=== PATIENT | male | born 1935 | race Caucasian/White ===

== ENCOUNTER 2018-02-23 07:19 | Inpatient (IN) | payer MEDICARE, OTHER ==
--- NOTE | 2018-02-23 07:40 | EDM.PDOC ---
ED HPI GENERAL MEDICAL PROBLEM - General Stated Complaint: SOB Time Seen by Provider: 02/23/18 07:19 Source of Information: Reports: Patient, Family History Limitations: Reports: Respiratory Distress - History of Present Illness INITIAL COMMENTS - FREE TEXT/NARRATIVE: 82 y.o.w.m with a h/o COPD came to the ed with prod cough and SOB. Pt was seen in a clinic last week and was given steroids. Pt was a former smoker. No other acute medical issues. BP 127/70 Pulse 77 RR 18 Pulse ox 95% on 2 liters O2 Onset Date: 02/16/18 Onset Time: 09:00 Duration: Day(s):, Week(s):, Getting Worse, Intermittent Location: Reports: Chest Quality: Reports: Other (sob, cough) Improves with: Reports: Rest Worsens with: Reports: Movement Context: Reports: Other (copd, fewer) Associated Symptoms: Reports: Cough, Shortness of Breath - Related Data Allergies Allergy/AdvReac Type Severity Reaction Status Date / Time furosemide [From Lasix] Allergy Cannot Verified 02/23/18 10:45 Remember Home Meds: Home Meds Albuterol [Proventil HFA] 2 puff INH Q4H PRN 12/01/14 [History] Aspirin [Children's Aspirin] 81 mg PO DAILY 12/01/14 [History] Bumetanide [Bumex] 0.5 mg PO MOWEFR 12/01/14 [History] Carvedilol 25 mg PO DAILY 12/01/14 [History] Cholecalciferol (Vitamin D3) [Vitamin D3] 1,000 unit PO DAILY 12/01/14 [History] Doxepin [SINEquan] 25 mg PO BEDTIME 12/01/14 [History] Hydrocortisone [Cortef] 10 mg PO DAILY 12/01/14 [History] Magnesium Oxide [Magnesium] 500 mg PO DAILY 12/01/14 [History] Calcium Carbonate [Calcium] 500 mg PO DAILY 02/23/18 [History] Fluticasone/Salmeterol [Advair 250-50] 1 puff IH BID 02/23/18 [History] Lisinopril 10 mg PO DAILY 02/23/18 [History] Umeclidinium [place] [Incruse Ellipta*] 1 puff IH DAILY 02/23/18 [History] Past Medical History Cardiovascular History: Reports: Hypertension Respiratory History: Reports: COPD, Pneumonia, Recurrent ED ROS GENERAL - Review of Systems Review Of Systems: See Below Constitutional: Reports: No Symptoms HEENT: Reports: No Symptoms Respiratory: Reports: Shortness of Breath, Cough, Sputum Cardiovascular: Reports: No Symptoms Endocrine: Reports: No Symptoms GI/Abdominal: Reports: No Symptoms : Reports: No Symptoms Musculoskeletal: Reports: No Symptoms Skin: Reports: No Symptoms Neurological: Reports: No Symptoms Psychiatric: Reports: No Symptoms Hematologic/Lymphatic: Reports: No Symptoms Immunologic: Reports: No Symptoms ED EXAM, GENERAL - Physical Exam Exam: See Below Exam Limited By: Respiratory Distress General Appearance: Alert, WD/WN, Moderate Distress Eye Exam: Bilateral Eye: Normal Inspection Ears: Normal External Exam, Normal Canal Ear Exam: Bilateral Ear: Auricle Normal Nose: Normal Inspection, Normal Mucosa, No Blood Throat/Mouth: Normal Inspection, Normal Lips, Normal Voice, No Airway Compromise Head: Atraumatic, Normocephalic Neck: Normal Inspection, Supple, Non-Tender, Full Range of Motion Respiratory/Chest: Respiratory Distress, Decreased Breath Sounds (RLL of lung) Cardiovascular: Normal Peripheral Pulses, Regular Rate, Rhythm, No Edema, No Gallop, No JVD, No Murmur, No Rub GI/Abdominal: Normal Bowel Sounds, Soft, Non-Tender, No Organomegaly, No Abnormal Bruit, No Mass (Male) Exam: Deferred Rectal (Males) Exam: Deferred Back Exam: Normal Inspection, Full Range of Motion Extremities: Normal Inspection, Normal Range of Motion, Non-Tender, No Pedal Edema, Normal Capillary Refill Neurological: Alert, Oriented, CN II-XII Intact, Normal Cognition, No Motor/ Sensory Deficits Psychiatric: Normal Affect, Normal Mood Skin Exam: Warm, Dry, Intact, Normal Color, No Rash Lymphatic: No Adenopathy Course - Vital Signs Text/Narrative:: 82 y.o.w.m with a h/o COPD came to the ed with prod cough and SOB. Pt was seen in a clinic last week and was given steroids. Pt was a former smoker. No other acute medical issues. BP 127/70 Pulse 77 RR 18 Pulse ox 95% on 2 liters O2 PE: 82 y.o.w.m with COPD came to the ed with SOB and prod. cough Imaging: CXR RLL and RML infiltrate/pneumonia as per RAD Labs: WBC 13.5 GFR 44 BUN 44 Cr 1.5 BUN/CR ratio elevated BCx results are pending Impression: RML and RLL pneumonia of right lung, CAPD Tx: Levofloxacine, NS, Duoneb Reexam: improved 10.58 am (texted): Consultation: Dr. Giron, Hospitlist: Admit to inpatient Plan: Admit to inpatient Last Recorded V/S: Last Vital Signs Temp 36.6 C 02/25/18 16:00 Pulse 72 02/25/18 16:00 Resp 18 02/25/18 16:00 BP 110/65 02/25/18 16:00 Pulse Ox 92 L 02/25/18 16:00 - Orders/Labs/Meds Orders: Medication Orders Albuterol/Ipratropium (Duoneb 3.0-0.5 Mg/3 Ml) 3 ml INH Q4H PRN PRN Reason: Shortness Of Breath/wheezing Last Admin: 02/25/18 13:34 Dose: 3 ml Admin: 02/25/18 07:35 Dose: 3 ml Admin: 02/24/18 20:47 Dose: 3 ml Admin: 02/24/18 12:50 Dose: 3 ml Aspirin (Aspirin) 81 mg PO DAILY [facility] Last Admin: 02/25/18 09:01 Dose: 81 mg Admin: 02/24/18 08:28 Dose: 81 mg Bumetanide (Bumex) 1 mg PO DAILY [facility] Last Admin: 02/25/18 09:01 Dose: 1 mg Admin: 02/24/18 10:21 Dose: 1 mg Admin: 02/23/18 20:11 Dose: 1 mg Carvedilol (Coreg) 25 mg PO DAILY [facility] Last Admin: 02/25/18 09:01 Dose: 25 mg Admin: 02/24/18 08:28 Dose: 25 mg Doxepin HCl (Sinequan) 25 mg PO BEDTIME [facility] Last Admin: 02/24/18 20:44 Dose: 25 mg Admin: 02/23/18 21:57 Dose: 25 mg Hydrocortisone (Cortef) 10 mg PO DAILY [facility] Last Admin: 02/25/18 09:01 Dose: 10 mg Admin: 02/24/18 10:22 Dose: 10 mg Levofloxacin/Dextrose 250 mg/ (Premix) 50 mls @ 50 mls/hr IV Q24H [facility] Last Admin: 02/25/18 13:19 Dose: 50 mls/hr Infusion: 02/24/18 13:40 Dose: 50 mls/hr Admin: 02/24/18 12:40 Dose: 50 mls/hr Magnesium Oxide (Magnesium Oxide) 400 mg PO DAILY [facility] Last Admin: 02/25/18 09:02 Dose: 400 mg Admin: 02/24/18 10:22 Dose: 400 mg Mometasone Furoate/Formoterol Fumar (Dulera 200-5 Mcg) 2 puff IH BID [facility] Last Admin: 02/25/18 09:02 Dose: 2 puff Admin: 02/24/18 20:44 Dose: 2 puff Admin: 02/24/18 08:29 Dose: 2 puff Prednisone (Prednisone) 20 mg PO BID [facility] Last Admin: 02/25/18 09:02 Dose: 20 mg Admin: 02/24/18 20:44 Dose: 20 mg Admin: 02/24/18 08:28 Dose: 20 mg Admin: 02/24/18 00:34 Dose: 20 mg Admin: 02/23/18 20:10 Dose: 20 mg Sodium Chloride (Saline Flush) 10 ml FLUSH ASDIRECTED PRN PRN Reason: Keep Vein Open Last Admin: 02/24/18 20:44 Dose: 10 ml Admin: 02/23/18 14:36 Dose: 10 ml Admin: 02/23/18 13:38 Dose: 10 ml Tiotropium [place] (Spiriva Handihaler) 18 mcg INH DAILY [facility] Last Admin: 02/25/18 09:02 Dose: 1 inhalation Admin: 02/24/18 10:22 Dose: 1 inhalation Labs: Laboratory Tests 02/23/18 02/23/18 02/23/18 Range/Units 09:00 09:00 09:00 WBC 13.9 H (4.5-12.0) X10-3/uL RBC 4.64 (4.30-5.75) x10(6)uL Hgb 14.9 (11.5-15.5) g/dL Hct 43.6 (30.0-51.3) % MCV 93.9 (80-96) fL MCH 32.0 (27.7-33.6) pg MCHC 34.1 (32.2-35.4) g/dL RDW 13.3 (11.5-15.5) % Plt Count 149 (125-369) X10(3)uL MPV 8.3 (7.4-10.4) fL Add Manual Diff Yes Neutrophils % (Manual) 89 H (46-82) % Lymphocytes % (Manual) 10 L (13-37) % Eosinophils % (Manual) 1 (0-5) % Sodium 141 (135-145) mmol/L Potassium 4.0 (3.5-5.3) mmol/L Chloride 103 (100-110) mmol/L Carbon Dioxide 31 (21-32) mmol/L BUN 42 H (7-18) mg/dL Creatinine 1.5 H (0.70-1.30) mg/dL Est Cr Clr Drug Dosing TNP Estimated GFR (MDRD) 45 L (>60) BUN/Creatinine Ratio 28.0 H (9-20) Glucose 79 L (80-116) mg/dL Lactic Acid 1.5 (0.4-2.2) mmol/L Calcium 8.7 (8.6-10.2) mg/dL Meds: Medications Generic Name Dose Route Start Last Admin Trade Name Freq PRN Reason Stop Dose Admin Albuterol/Ipratropium 3 ml 02/24/18 10:00 02/25/18 13:34 Duoneb 3.0-0.5 Mg/3 Ml INH 3 ml Q4H PRN Administration Shortness Of Breath/wheezing Aspirin 81 mg 02/24/18 09:00 02/25/18 09:01 Aspirin PO 81 mg DAILY SY Administration Bumetanide 1 mg 02/23/18 19:00 02/25/18 09:01 Bumex PO 1 mg DAILY SY Administration Carvedilol 25 mg 02/24/18 09:00 02/25/18 09:01 Coreg PO 25 mg DAILY SY Administration Doxepin HCl 25 mg 02/23/18 21:00 02/24/18 20:44 Sinequan PO 25 mg BEDTIME SY Administration Hydrocortisone 10 mg 02/24/18 09:00 02/25/18 09:01 Cortef PO 10 mg DAILY SY Administration Levofloxacin/Dextrose 250 mg/ 50 mls @ 50 mls/hr 02/24/18 13:00 02/25/18 13: 19 Premix IV 50 mls/hr Q24H SY Administration Magnesium Oxide 400 mg 02/24/18 09:00 02/25/18 09:02 Magnesium Oxide PO 400 mg DAILY SY Administration Mometasone Furoate/Formoterol Fumar 2 puff 02/24/18 07:55 02/25/18 09:02 Dulera 200-5 Mcg IH 2 puff BID SY Administration Prednisone 20 mg 02/23/18 17:45 02/25/18 09:02 Prednisone PO 20 mg BID SY Administration Sodium Chloride 10 ml 02/23/18 11:41 02/24/18 20:44 Saline Flush FLUSH 10 ml ASDIRECTED PRN Administration Keep Vein Open Tiotropium [place] 18 mcg 02/24/18 09:00 02/25/18 09:02 Spiriva Handihaler INH 1 inhalation DAILY SY Administration Discontinued Medications Generic Name Dose Route Start Last Admin Trade Name Freq PRN Reason Stop Dose Admin Albuterol/Ipratropium 3 ml 02/23/18 07:41 02/23/18 08:20 Duoneb 3.0-0.5 Mg/3 Ml NEB 02/23/18 07:42 3 ml ONETIME ONE Administration Albuterol/Ipratropium 3 ml 02/23/18 11:41 Duoneb 3.0-0.5 Mg/3 Ml INH ONETIME PRN Shortness Of Breath/wheezing Levofloxacin/Dextrose 500 mg/ 100 mls @ 100 mls/hr 02/23/18 11:06 02/23/18 13 :33 Premix IV 02/23/18 12:05 100 mls/hr ONETIME ONE Administration Levofloxacin/Dextrose 500 mg/ 100 mls @ 100 mls/hr 02/24/18 11:00 Premix IV Q24H SY Sodium Chloride 1,000 mls @ 100 mls/hr 02/24/18 08:15 02/24/18 08:22 Normal Saline IV 02/24/18 19:00 100 mls/hr ASDIRECTED SY Administration Iopamidol 75 ml 02/23/18 18:57 02/23/18 19:21 Isovue-370 (76%) IV 02/23/18 18:58 75 ml ASDIRECTED ONE Administration Mometasone Furoate/Formoterol Fumar 2 puff 02/23/18 21:00 02/23/18 21:57 Dulera 200-5 Mcg IH 2 puff BID SY Administration Prednisone Confirm 02/23/18 20:09 02/23/18 20:16 Prednisone Administered 02/23/18 20:10 Not Given Dose 20 mg .ROUTE .STK-MED ONE Departure - Departure Time of Disposition: 16:00 Disposition: Admitted As Inpatient 66 Condition: Fair Clinical Impression: Pneumonia - Discharge Information
[2018-02-23] MEDS ORDERED: Albuterol/Ipratropium 3.0-0.5 MG/3 ML Neb Soln NEB ONE (07:41)
[2018-02-23] MEDS ORDERED: Levofloxacin/Dextrose 5%-Water 500 MG in Premix Bag 1 BAG IV ONE (11:06)
--- NOTE | 2018-02-23 11:06 | CR ---
INDICATION: Short of breath, cough. CHEST: Two PA views and a lateral view of the chest were obtained 02/23/2018 and compared with 02/15/2018 and 12/04/2014. Heavy markings are noted in the upper lung blake and the right mid lung field, as well as at the lower lung field on the right, and appear increased in the lower lung field on the right, suggesting patchy pneumonia superimposed on fibrosis. No gross consolidating pneumonia or definite effusion was seen. Findings compatible with COPD are again noted. The heart is normal in size and shape. The aorta is tortuous with calcification in the arch. Mild degenerative changes are noted in the upper middle thoracic spine. IMPRESSION: 1. Patchy pneumonia in the right lower lobe and middle lobe areas superimposed on fibrosis. 2. COPD. 3. ASD aorta. MTDD
[2018-02-23] MEDS ORDERED: Albuterol/Ipratropium 3.0-0.5 MG/3 ML Neb Soln INH PRN (11:41)
[2018-02-23] MEDS: Sodium Chloride 0.9% 10 ML Syringe FLUSH PRN ×2 (13:38→14:36)
--- NOTE | 2018-02-23 17:51 | PCM.HP ---
H&P History of Present Illness - General Date of Service: 02/23/18 Admit Problem/Dx: Admission Diagnosis/Problem Admission Diagnosis/Problem Pneumonia Source of Information: Patient, Old Records - History of Present Illness Initial Comments - Free Text/Narative: Zac is an 82-year-old male with cough shortness of breath lasting weeks. I sodium the clinic a week ago and treated for COPD exacerbation with prednisone and see CPAP his symptoms worsened. He c/o coughing yellow sputum and nebulized therapy at home isnt helping. He has known COPD, as well as a history of CHF both of which have been well-controlled. He also has a history of lung cancer- squamous cell -in remission. in 2008,he had respiratory failure and ended up prolonged mechanical ventilation.Also has [place]'s disease & is currently on hydrocortisone for replacement. Today,Zac complains of no headache, no chest pain neither does he have any fever or chills ,nausea or vomiting. - Related Data Allergies/Adverse Reactions: Allergies Allergy/AdvReac Type Severity Reaction Status Date / Time furosemide [From Lasix] Allergy Cannot Verified 02/23/18 10:45 Remember Home Medications: Home Meds Albuterol [Proventil HFA] 2 puff INH Q4H PRN 12/01/14 [History] Aspirin [Children's Aspirin] 81 mg PO DAILY 12/01/14 [History] Bumetanide [Bumex] 0.5 mg PO MOWEFR 12/01/14 [History] Carvedilol 25 mg PO DAILY 12/01/14 [History] Cholecalciferol (Vitamin D3) [Vitamin D3] 1,000 unit PO DAILY 12/01/14 [History] Doxepin [SINEquan] 25 mg PO BEDTIME 12/01/14 [History] Hydrocortisone [Cortef] 10 mg PO DAILY 12/01/14 [History] Magnesium Oxide [Magnesium] 500 mg PO DAILY 12/01/14 [History] Calcium Carbonate [Calcium] 500 mg PO DAILY 02/23/18 [History] Fluticasone/Salmeterol [Advair 250-50] 1 puff IH BID 02/23/18 [History] Lisinopril 10 mg PO DAILY 02/23/18 [History] Umeclidinium [place] [Incruse Ellipta*] 1 puff IH DAILY 02/23/18 [History] Past Medical History Cardiovascular History: Reports: Hypertension Respiratory History: Reports: COPD, Pneumonia, Recurrent Other Respiratory History: hx of lung ca with "tumors removed twice" one from each lung Endocrine/Metabolic History: Reports: [place]'s Disease Oncologic (Cancer) History: Reports: Lung, Lymphoma, Other (See Below) Other Oncologic History: "skin cancer" Dermatologic History: Reports: Melanoma, Other (See Below) Other Dermatologic History: "skin cancer with leisons remove frequently" Social & Family History - Tobacco Use Smoking Status *Q: Former Smoker Used Tobacco, but Quit: Yes Month/Year Tobacco Last Used: 1979 - Caffeine Use Caffeine Use: Reports: Coffee - Recreational Drug Use Recreational Drug Use: No H&P Review of Systems - Review of Systems: Review Of Systems: ROS reveals no pertinent complaints other than HPI. Exam - Exam Exam: See Below - Vital Signs Vital Signs: Last Vital Signs Temp 99.3 F 02/23/18 11:42 Pulse 83 02/23/18 11:42 Resp 18 02/23/18 11:42 BP 116/44 L 02/23/18 11:42 Pulse Ox 89 L 02/23/18 11:43 Weight: 77.927 kg - Exam Quality Assessment: Supplemental Oxygen General: Alert, Oriented, 4 HEENT: PERRLA, Hearing Intact, Mucosa Moist & [place], Nares Patent, Normal Nasal Septum, Posterior Pharynx Clear, Conjunctiva Clear, EOMI, EACs Clear, TMs Clear Neck: Supple, Trachea Midline, 2 Lungs: Normal Respiratory Effort, Crackles, Rales Cardiovascular: Regular Rate, Regular Rhythm GI/Abdominal Exam: Normal Bowel Sounds, Soft, Non-Tender, No Organomegaly, No Distention, No Abnormal Bruit, No Mass, Pelvis Stable (Male) Exam: Deferred Rectal (Males) Exam: Deferred Back Exam: Normal Inspection, Full Range of Motion, NT Extremities: Normal Inspection, Normal Range of Motion, Non-Tender, No Pedal Edema, Normal Capillary Refill Skin: Warm, Dry, Intact Neurological: Cranial Nerves Intact, Reflexes Equal Bilateral Neuro Extensive - Mental Status: Alert, Oriented x3, Normal Mood/Affect, Normal Cognition Neuro Extensive - Motor, Sensory, Reflexes: CN II-XII Intact, Normal Gait, Normal Reflexes Psychiatric: Alert, Normal Affect, Normal Mood - Patient Data Lab Results Last 24 hrs: Laboratory Results - last 24 hr 02/23/18 02/23/18 02/23/18 Range/Units 09:00 09:00 09:00 WBC 13.9 H (4.5-12.0) X10-3/uL RBC 4.64 (4.30-5.75) x10(6)uL Hgb 14.9 (11.5-15.5) g/dL Hct 43.6 (30.0-51.3) % MCV 93.9 (80-96) fL MCH 32.0 (27.7-33.6) pg MCHC 34.1 (32.2-35.4) g/dL RDW 13.3 (11.5-15.5) % Plt Count 149 (125-369) X10(3)uL MPV 8.3 (7.4-10.4) fL Add Manual Diff Yes Neutrophils % (Manual) 89 H (46-82) % Lymphocytes % (Manual) 10 L (13-37) % Eosinophils % (Manual) 1 (0-5) % Sodium 141 (135-145) mmol/L Potassium 4.0 (3.5-5.3) mmol/L Chloride 103 (100-110) mmol/L Carbon Dioxide 31 (21-32) mmol/L BUN 42 H (7-18) mg/dL Creatinine 1.5 H (0.70-1.30) mg/dL Est Cr Clr Drug Dosing TNP Estimated GFR (MDRD) 45 L (>60) BUN/Creatinine Ratio 28.0 H (9-20) Glucose 79 L (80-116) mg/dL Lactic Acid 1.5 (0.4-2.2) mmol/L Calcium 8.7 (8.6-10.2) mg/dL Result Diagrams: 02/23/18 09:00 02/23/18 09:00 - Problem List (1) CAP (community acquired pneumonia) SNOMED Code(s): 938264931 ICD Code: J18.9 - PNEUMONIA, UNSPECIFIED ORGANISM Status: Acute Current Visit: Yes Qualifiers: Laterality: right (2) COPD (chronic obstructive pulmonary disease) SNOMED Code(s): 92427436 ICD Code: J44.9 - CHRONIC OBSTRUCTIVE PULMONARY DISEASE, UNSPECIFIED Status : Acute Current Visit: Yes Qualifiers: COPD type: COPD with acute exacerbation Qualified Code(s): J44.1 - Chronic obstructive pulmonary disease with (acute) exacerbation (3) H/O: lung cancer SNOMED Code(s): 065649918, 844289852 ICD Code: Z85.118 - PERSONAL HISTORY OF MALIGNANT NEOPLASM OF BRONCHUS AND LUNG Status: Acute Current Visit: Yes (4) H/O CHF SNOMED Code(s): 400583528 ICD Code: Z86.79 - PERSONAL HISTORY OF OTHER DISEASES OF THE CIRCULATORY SYSTEM Status: Chronic Current Visit: Yes (5) Addisons disease SNOMED Code(s): 086904083 ICD Code: E27.1 - PRIMARY ADRENOCORTICAL INSUFFICIENCY Status: Chronic Current Visit: Yes (6) Lymphoma SNOMED Code(s): 324133165 ICD Code: C85.90 - NON-HODGKIN LYMPHOMA, UNSPECIFIED, UNSPECIFIED SITE Status: Acute Current Visit: Yes Qualifiers: Non-follicular lymphoma type: mantle cell (7) HTN (hypertension) SNOMED Code(s): 83601849 ICD Code: I10 - ESSENTIAL (PRIMARY) HYPERTENSION Status: Chronic Current Visit: Yes Qualifiers: Hypertension type: essential hypertension Qualified Code(s): I10 - Essential (primary) hypertension (8) CKD (chronic kidney disease) SNOMED Code(s): 388131133 ICD Code: N18.9 - CHRONIC KIDNEY DISEASE, UNSPECIFIED Status: Chronic Current Visit: Yes Qualifiers: Chronic kidney disease stage: stage 3 (moderate) Qualified Code(s): N18.3 - Chronic kidney disease, stage 3 (moderate) Problem List Initiated/Reviewed/Updated: Yes Orders Last 24hrs: Active Orders 24 hr Category Date Time Status Patient Status [ADT] Routine ADT 02/23/18 11:42 Active Oxygen Therapy [RC] PRN Care 02/23/18 11:42 Active Pulse Oximetry [RC] PRN Care 02/23/18 11:43 Active RT Aerosol Therapy [RC] ASDIRECTED Care 02/23/18 11:44 Active Up With Assistance [RC] ASDIRECTED Care 02/23/18 11:41 Active Vital Signs [RC] Q4H Care 02/23/18 11:42 Active Regular Diet [DIET] Diet 02/23/18 Breakfast Active Chest w Cont [CT] Routine Exams 02/23/18 17:40 Ordered BASIC METABOLIC PANEL,BMP [CHEM] AM Lab 02/24/18 05:11 Ordered CBC WITH AUTO DIFF [HEME] AM Lab 02/24/18 05:11 Ordered CULTURE BLOOD [BC] Urgent Lab 02/23/18 11:00 Received CULTURE BLOOD [BC] Urgent Lab 02/23/18 11:08 Received PRO B-TYPE NATRIUR PEPT,BNPPRO [CHEM] DAILY Lab 02/24/18 05:11 Ordered PRO B-TYPE NATRIUR PEPT,BNPPRO [CHEM] DAILY Lab 02/25/18 05:11 Ordered PRO B-TYPE NATRIUR PEPT,BNPPRO [CHEM] DAILY Lab 02/26/18 05:11 Ordered Albuterol/Ipratropium [DuoNeb 3.0-0.5 MG/3 ML] Med 02/23/18 11:41 Active 3 ml INH ONETIME PRN Aspirin Med 02/24/18 09:00 Ordered 81 mg PO DAILY Carvedilol [Coreg] Med 02/24/18 09:00 Ordered 25 mg PO DAILY Doxepin [SINEquan] Med 02/23/18 21:00 Ordered 25 mg PO BEDTIME Fluticasone/Salmeterol [Advair 250-50] Med 02/23/18 21:00 Ordered 1 puff IH BID Hydrocortisone [Cortef] Med 02/24/18 09:00 Ordered 10 mg PO DAILY Levofloxacin/Dextrose 5%-Water [Levaquin in D5W 500 MG/ Med 02/24/18 11:00 Ordered 100 ML] 500 mg Premix Bag 1 bag IV Q24H Magnesium Oxide [Magnesium] Med 02/24/18 09:00 Ordered 500 mg PO DAILY Sodium Chloride 0.9% [Saline Flush] Med 02/23/18 11:41 Active 10 ml FLUSH ASDIRECTED PRN Umeclidinium [place] [Incruse Ellipta*] Med 02/24/18 09:00 Ordered 1 puff IH DAILY predniSONE Med 02/23/18 17:45 Ordered 20 mg PO BID Blood Culture x2 Reflex Set [OM.PC] Urgent Oth 02/23/18 10:37 Ordered Peripheral IV Insertion Adult [OM.PC] Routine Oth 02/23/18 11:41 Ordered Resuscitation Status Routine Resus Stat 02/23/18 11:41 Ordered Medication Orders Albuterol/Ipratropium (Duoneb 3.0-0.5 Mg/3 Ml) 3 ml INH ONETIME PRN PRN Reason: Shortness Of Breath/wheezing Aspirin (Aspirin) 81 mg PO DAILY SY Carvedilol (Coreg) 25 mg PO DAILY SY Doxepin HCl (Sinequan) 25 mg PO BEDTIME SY Levofloxacin/Dextrose 500 mg/ (Premix) 100 mls @ 100 mls/hr IV Q24H SY Non-Formulary Medication (Fluticasone/Salmeterol [Advair 250-50]) 1 puff IH BID SY Non-Formulary Medication (Hydrocortisone [Cortef]) 10 mg PO DAILY SY Non-Formulary Medication (Magnesium Oxide [Magnesium]) 500 mg PO DAILY SY Non-Formulary Medication (Umeclidinium [place] [Incruse Ellipta*]) 1 puff IH DAILY SY Prednisone (Prednisone) 20 mg PO BID SY Sodium Chloride (Saline Flush) 10 ml FLUSH ASDIRECTED PRN PRN Reason: Keep Vein Open Last Admin: 02/23/18 14:36 Dose: 10 ml Admin: 02/23/18 13:38 Dose: 10 ml Assessment/Plan Comment:: Zac has pneumonia,clinically and radiographically. However because of his previous bilateral squamous cell of the lung, I've elected to obtain a CT of the chest. We'll admit him for IV Levaquin, and due to COPD exacerbation I'll also add Solu-Medrol and supplement his O2 with nasal canula oxygen. Of ordered a BNP, and a repeat basic profile in the morning. But I will increase the dose of Bumex 1 mg a day. I've held all his vitamins at home but to continue with SVNs. I've also discontinued the lisinopril because of his low blood pressure. I anticipate a 1-2 day hospital stay.
[2018-02-23] MEDS ORDERED: Iopamidol 755 Mg/ML 75 ML Bottle IV ONE (18:57)
[2018-02-23] MEDS ORDERED: predniSONE 20 MG Tab ONE (20:09)
[2018-02-23] MEDS: predniSONE 20 MG Tab PO SCH (20:10)
[2018-02-23] MEDS: Bumetanide 2 MG Tab PO SCH (20:11)
[2018-02-23] MEDS ORDERED: Formoterol/Mometasone 200-5 MCG 8.8 GM Inhaler IH SCH (21:00)
[2018-02-23] MEDS: Doxepin 25 MG Cap PO SCH (21:57)
[2018-02-24] MEDS: predniSONE 20 MG Tab PO SCH ×3 (00:34→20:44)
[2018-02-24] MEDS ORDERED: Sodium Chloride 0.9% 1,000 ML IV SCH (08:15)
--- NOTE | 2018-02-24 08:21 | PCM.PN ---
- General Info Date of Service: 02/24/18 Admission Dx/Problem (Free Text): Admission Diagnosis/Problem Admission Diagnosis/Problem Pneumonia Subjective Update: Zac slept better, complaints of less cough, still has some wheezing but no fever chills. He denies any chest pain - Review of Systems Cardiovascular: Reports: No Symptoms Gastrointestinal: Reports: No Symptoms Genitourinary: Reports: No Symptoms - Patient Data Vitals - Most Recent: Last Vital Signs Temp 97.6 F 02/24/18 07:42 Pulse 71 02/24/18 07:42 Resp 20 02/24/18 07:42 BP 103/56 L 02/24/18 07:42 Pulse Ox 89 L 02/24/18 07:42 Weight - Most Recent: 77.927 kg I&O - Last 24 Hours: Intake & Output 02/23/18 02/24/18 02/24/18 22:59 06:59 14:59 Intake Total 100 Balance 100 Lab Results Last 24 Hours: Laboratory Results - last 24 hr 02/23/18 02/23/18 02/23/18 Range/Units 09:00 09:00 09:00 WBC 13.9 H (4.5-12.0) X10-3/uL RBC 4.64 (4.30-5.75) x10(6)uL Hgb 14.9 (11.5-15.5) g/dL Hct 43.6 (30.0-51.3) % MCV 93.9 (80-96) fL MCH 32.0 (27.7-33.6) pg MCHC 34.1 (32.2-35.4) g/dL RDW 13.3 (11.5-15.5) % Plt Count 149 (125-369) X10(3)uL MPV 8.3 (7.4-10.4) fL Add Manual Diff Yes Neutrophils % (Manual) 89 H (46-82) % Lymphocytes % (Manual) 10 L (13-37) % Monocytes % (Manual) (4-12) % Eosinophils % (Manual) 1 (0-5) % Sodium 141 (135-145) mmol/L Potassium 4.0 (3.5-5.3) mmol/L Chloride 103 (100-110) mmol/L Carbon Dioxide 31 (21-32) mmol/L BUN 42 H (7-18) mg/dL Creatinine 1.5 H (0.70-1.30) mg/dL Est Cr Clr Drug Dosing TNP Estimated GFR (MDRD) 45 L (>60) BUN/Creatinine Ratio 28.0 H (9-20) Glucose 79 L (80-116) mg/dL Lactic Acid 1.5 (0.4-2.2) mmol/L Calcium 8.7 (8.6-10.2) mg/dL NT-Pro-B Natriuret Pep (<=450) pg/mL 02/24/18 02/24/18 02/24/18 Range/Units 06:15 06:15 06:15 WBC 22.5 H (4.5-12.0) X10-3/uL RBC 4.45 (4.30-5.75) x10(6)uL Hgb 13.9 (11.5-15.5) g/dL Hct 41.6 (30.0-51.3) % MCV 93.5 (80-96) fL MCH 31.2 (27.7-33.6) pg MCHC 33.4 (32.2-35.4) g/dL RDW 13.2 (11.5-15.5) % Plt Count 155 (125-369) X10(3)uL MPV 8.9 (7.4-10.4) fL Add Manual Diff Yes Neutrophils % (Manual) 93 H (46-82) % Lymphocytes % (Manual) 4 L (13-37) % Monocytes % (Manual) 3 L (4-12) % Eosinophils % (Manual) (0-5) % Sodium 139 (135-145) mmol/L Potassium 4.5 (3.5-5.3) mmol/L Chloride 101 (100-110) mmol/L Carbon Dioxide 28 (21-32) mmol/L BUN 43 H (7-18) mg/dL Creatinine 2.0 H* (0.70-1.30) mg/dL Est Cr Clr Drug Dosing 28.48 Estimated GFR (MDRD) 32 L (>60) BUN/Creatinine Ratio 21.5 H (9-20) Glucose 100 (80-116) mg/dL Lactic Acid (0.4-2.2) mmol/L Calcium 8.8 (8.6-10.2) mg/dL NT-Pro-B Natriuret Pep 4409 H* (<=450) pg/mL Med Orders - Current: Current Medications Albuterol/Ipratropium (Duoneb 3.0-0.5 Mg/3 Ml) 3 ml INH ONETIME PRN PRN Reason: Shortness Of Breath/wheezing Aspirin (Aspirin) 81 mg PO DAILY [facility] Bumetanide (Bumex) 1 mg PO DAILY [facility] Last Admin: 02/23/18 20:11 Dose: 1 mg Carvedilol (Coreg) 25 mg PO DAILY SY Doxepin HCl (Sinequan) 25 mg PO BEDTIME SY Last Admin: 02/23/18 21:57 Dose: 25 mg Hydrocortisone (Cortef) 10 mg PO DAILY [facility] Levofloxacin/Dextrose 500 mg/ (Premix) 100 mls @ 100 mls/hr IV Q24H SY Sodium Chloride (Normal Saline) 1,000 mls @ 100 mls/hr IV ASDIRECTED SY Stop: 02/24/18 19:00 Magnesium Oxide (Magnesium Oxide) 400 mg PO DAILY [facility] Mometasone Furoate/Formoterol Fumar (Dulera 200-5 Mcg) 2 puff IH BID [facility] Prednisone (Prednisone) 20 mg PO BID [facility] Last Admin: 02/24/18 00:34 Dose: 20 mg Sodium Chloride (Saline Flush) 10 ml FLUSH ASDIRECTED PRN PRN Reason: Keep Vein Open Last Admin: 02/23/18 14:36 Dose: 10 ml Tiotropium [place] (Spiriva Handihaler) 18 mcg INH DAILY [facility] Discontinued Medications Albuterol/Ipratropium (Duoneb 3.0-0.5 Mg/3 Ml) 3 ml NEB ONETIME ONE Stop: 02/23/18 07:42 Last Admin: 02/23/18 08:20 Dose: 3 ml Levofloxacin/Dextrose 500 mg/ (Premix) 100 mls @ 100 mls/hr IV ONETIME ONE Stop: 02/23/18 12:05 Last Admin: 02/23/18 13:33 Dose: 100 mls/hr Iopamidol (Isovue-370 (76%)) 75 ml IV ASDIRECTED ONE Stop: 02/23/18 18:58 Last Admin: 02/23/18 19:21 Dose: 75 ml Mometasone Furoate/Formoterol Fumar (Dulera 200-5 Mcg) 2 puff IH BID SY Last Admin: 02/23/18 21:57 Dose: 2 puff Prednisone (Prednisone) Confirm Administered Dose 20 mg .ROUTE .STK-MED ONE Stop: 02/23/18 20:10 Last Admin: 02/23/18 20:16 Dose: Not Given - Exam Quality Assessment: Supplemental Oxygen General: Alert, Oriented Lungs: Decreased Breath Sounds, Rhonchi Cardiovascular: Regular Rate Extremities: Normal Inspection, Normal Range of Motion, Non-Tender, No Pedal Edema, Normal Capillary Refill Psy/Mental Status: Alert - Problem List & Annotations (1) CAP (community acquired pneumonia) SNOMED Code(s): 026271434 Code(s): J18.9 - PNEUMONIA, UNSPECIFIED ORGANISM Status: Acute Current Visit: Yes Qualifiers: Laterality: right (2) COPD (chronic obstructive pulmonary disease) SNOMED Code(s): 10196043 Code(s): J44.9 - CHRONIC OBSTRUCTIVE PULMONARY DISEASE, UNSPECIFIED Status : Acute Current Visit: Yes Qualifiers: COPD type: COPD with acute exacerbation Qualified Code(s): J44.1 - Chronic obstructive pulmonary disease with (acute) exacerbation (3) H/O: lung cancer SNOMED Code(s): 443918703, 298996965 Code(s): Z85.118 - PERSONAL HISTORY OF MALIGNANT NEOPLASM OF BRONCHUS AND LUNG Status: Acute Current Visit: Yes (4) H/O CHF SNOMED Code(s): 212499003 Code(s): Z86.79 - PERSONAL HISTORY OF OTHER DISEASES OF THE CIRCULATORY SYSTEM Status: Chronic Current Visit: Yes (5) Addisons disease SNOMED Code(s): 047857305 Code(s): E27.1 - PRIMARY ADRENOCORTICAL INSUFFICIENCY Status: Chronic Current Visit: Yes (6) Lymphoma SNOMED Code(s): 820629625 Code(s): C85.90 - NON-HODGKIN LYMPHOMA, UNSPECIFIED, UNSPECIFIED SITE Status: Acute Current Visit: Yes Qualifiers: Non-follicular lymphoma type: mantle cell (7) HTN (hypertension) SNOMED Code(s): 28315750 Code(s): I10 - ESSENTIAL (PRIMARY) HYPERTENSION Status: Chronic Current Visit: Yes Qualifiers: Hypertension type: essential hypertension Qualified Code(s): I10 - Essential (primary) hypertension (8) CKD (chronic kidney disease) SNOMED Code(s): 081095509 Code(s): N18.9 - CHRONIC KIDNEY DISEASE, UNSPECIFIED Status: Chronic Current Visit: Yes Qualifiers: Chronic kidney disease stage: stage 3 (moderate) Qualified Code(s): N18.3 - Chronic kidney disease, stage 3 (moderate) - Problem List Review Problem List Initiated/Reviewed/Updated: Yes - My Orders Last 24 Hours: My Active Orders 02/23/18 17:40 Chest w Cont [CT] Routine 02/23/18 17:45 predniSONE 20 mg PO BID 02/23/18 19:00 Bumetanide [Bumex] 1 mg PO DAILY 02/23/18 21:00 Doxepin [SINEquan] 25 mg PO BEDTIME 02/24/18 07:55 Mometasone/Formoterol [Dulera 200-5 MCG] 2 puff IH BID 02/24/18 08:15 Sodium Chloride 0.9% @ 100 MLS/HR(1,000ml) Sodium Chloride 0.9% [Normal Saline] 1,000 ml IV ASDIRECTED 02/24/18 09:00 Aspirin 81 mg PO DAILY Carvedilol [Coreg] 25 mg PO DAILY Hydrocortisone [Cortef] 10 mg PO DAILY Magnesium Oxide 400 mg PO DAILY Umeclidinium [place] [Incruse Ellipta*] 1 puff IH DAILY 02/24/18 11:00 Levofloxacin/Dextrose 5%-Water [Levaquin in D5W 500 MG/100 ML] 500 mg Premix Bag 1 bag IV Q24H 02/25/18 05:11 CBC WITH AUTO DIFF [HEME] AM COMPREHENSIVE METABOLIC PN,CMP [CHEM] AM PRO B-TYPE NATRIUR PEPT,BNPPRO [CHEM] DAILY 02/26/18 05:11 PRO B-TYPE NATRIUR PEPT,BNPPRO [CHEM] DAILY - Plan Plan:: Zac's creatinine jumped up to 2.0, presumably due to the IV contrast. I will flush his kidneys with normal saline for 10-12 hours. I plan to repeat a basic profile and CBC in the morning. I've also recommended that the respiratory therapist try Acapella and some physiotherapy, along with incentive spirometry. I've encouraged Zac to ambulate more. Meanwhile will continued IV Solu-Medrol, and antibiotics. Decrease the dose of Levaquin to 250 mg daily due to the creatinine clearance
[2018-02-24] MEDS: Aspirin 81 MG Tab.Chew PO SCH (08:28)
[2018-02-24] MEDS: Carvedilol 25 MG Tab PO SCH (08:28)
[2018-02-24] MEDS: Formoterol/Mometasone 200-5 MCG 8.8 GM Inhaler IH SCH ×2 (08:29→20:44)
[2018-02-24] MEDS: Bumetanide 2 MG Tab PO SCH (10:21)
[2018-02-24] MEDS: Magnesium Oxide 400 MG Tab PO SCH (10:22)
[2018-02-24] MEDS: Tiotropium Inhaler 18 MCG Inhalation Powder Cap Kit of 5 INH SCH (10:22)
[2018-02-24] MEDS: Hydrocortisone 20 MG Tab PO SCH (10:22)
[2018-02-24] MEDS ORDERED: Levofloxacin/Dextrose 5%-Water 500 MG in Premix Bag 1 BAG IV SCH (11:00)
--- NOTE | 2018-02-24 11:27 | CT ---
INDICATION: Pneumonia, history of cancer. CT CHEST WITH CONTRAST: Spiral 2.5 mm axial sections were obtained through the chest with 75 mL Isovue 370 at 1.8 mL/second with sagittal and coronal reconstructions 02/23/2018 and were compared with recent chest x-rays and previous CT scan from [facility] dated 01/03/2011. Total exam DLP = 447.13 mGy-cm. A 9.8 mm nodule seen on axial image #40 on 01/03/2011 examination is no longer visualized and may have represented a small abscess or focal pneumonia. There is an appearance of a nodular mass of 3 cm diameter anterior to the major fissure in the posterior basilar segment of the right upper lobe. 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 It has a very low density. It was also not present, as far as could be visualized on recent chest x-rays. Infiltration is noted in the right upper lobe in multiple locations, for the most part in a patchy fashion with a greater degree of consolidation in a few areas anteriorly in the anterior basilar segment of the right upper lobe and in the right lower lobe on axial image #86. Somewhat nodular appearing infiltrates are noted in the middle lobe near the lung base. A small pleural effusion is noted on the right, compatible with pleuritis. Very minimal infiltrate may be present at the lung base on the left in the lower lobe. The likelihood that these findings represent pneumonia is felt to be greatest. Metastatic disease in this patient with history of lung CA is felt to be less likely but is difficult to entirely exclude. Followup CT scan in two months is recommended, after treatment, to show resolution of these probable infectious changes. Lymphadenopathy is noted at the right hilum and to a lesser extent in the mediastinum, which is increased in the right hilum and fairly stable in the mediastinum, likely on the basis of infection. No pericardial effusion was seen. The heart did not appear enlarged. No mediastinal mass was seen. A probable benign cystic structure measuring approximately 2.7 cm is again noted in the lateral cortex of the mid pole of the left kidney, essentially unchanged from the previous study of 2010. No definite adrenal mass is seen. There is some renal cortical scarring. IMPRESSION: Findings are felt to be most compatible with pneumonia in the right lung, involving all lobes on the right, and perhaps minimally at the left lung base - lower lobe. Pleuritis on the right is suggested. There is also essentially unchanged fibrotic appearing findings in the left upper lobe, compatible with previous lung resection in that area. Report was called to Dr. Giron at approximately 1015 hours on 02/24/2018. MTDD
[2018-02-24] MEDS: Levofloxacin/Dextrose 5%-Water 250 MG in Premix Bag 1 BAG IV SCH (12:40)
[2018-02-24] MEDS: Albuterol/Ipratropium 3.0-0.5 MG/3 ML Neb Soln INH PRN ×2 (12:50→20:47)
[2018-02-24] MEDS: Doxepin 25 MG Cap PO SCH (20:44)
[2018-02-24] MEDS: Sodium Chloride 0.9% 10 ML Syringe FLUSH PRN (20:44)
[2018-02-25] MEDS: Albuterol/Ipratropium 3.0-0.5 MG/3 ML Neb Soln INH PRN ×3 (07:35→20:27)
--- NOTE | 2018-02-25 08:57 | PCM.PN ---
- General Info Date of Service: 02/25/18 Subjective Update: Zac feels that he has improved. Still has a cough but is not short of breath and has no fever. Functional Status: Reports: Pain Controlled, Tolerating Diet, Ambulating - Review of Systems Cardiovascular: Reports: No Symptoms Gastrointestinal: Reports: No Symptoms Genitourinary: Reports: No Symptoms - Patient Data Vitals - Most Recent: Last Vital Signs Temp 98 F 02/25/18 04:00 Pulse 74 02/25/18 04:00 Resp 18 02/25/18 04:00 BP 105/56 L 02/25/18 04:00 Pulse Ox 94 L 02/25/18 04:00 Weight - Most Recent: 77.927 kg Lab Results Last 24 Hours: Laboratory Results - last 24 hr 02/25/18 02/25/18 02/25/18 Range/Units 06:30 06:30 06:30 WBC 16.4 H (4.5-12.0) X10-3/uL RBC 3.84 L (4.30-5.75) x10(6)uL Hgb 12.3 (11.5-15.5) g/dL Hct 36.6 (30.0-51.3) % MCV 95.2 (80-96) fL MCH 32.0 (27.7-33.6) pg MCHC 33.6 (32.2-35.4) g/dL RDW 13.4 (11.5-15.5) % Plt Count 153 (125-369) X10(3)uL MPV 8.9 (7.4-10.4) fL Add Manual Diff Yes Neutrophils % (Manual) 97 H (46-82) % Lymphocytes % (Manual) 3 L (13-37) % Sodium 138 (135-145) mmol/L Potassium 4.2 (3.5-5.3) mmol/L Chloride 103 (100-110) mmol/L Carbon Dioxide 30 (21-32) mmol/L BUN 46 H (7-18) mg/dL Creatinine 1.9 H (0.70-1.30) mg/dL Est Cr Clr Drug Dosing 29.98 mL/min Estimated GFR (MDRD) 34 L (>60) BUN/Creatinine Ratio 24.2 H (9-20) Glucose 210 H D (80-116) mg/dL Calcium 8.6 (8.6-10.2) mg/dL Total Bilirubin 0.6 (0.1-1.3) mg/dL AST 13 (5-25) IU/L ALT 21 (12-36) U/L Alkaline Phosphatase 51 L (56-112) IU/L NT-Pro-B Natriuret Pep 946 H (<=450) pg/mL Total Protein 5.5 L (6.0-8.0) g/dL Albumin 2.1 L (3.2-4.6) g/dL Globulin 3.4 g/dL Albumin/Globulin Ratio 0.6 Santosh Results Last 24 Hours: Microbiology 02/23/18 11:08 Aerobic Blood Culture - Preliminary Blood - Venous - Lab Draw NO GROWTH AFTER 1 DAY Anaerobic Blood Culture - Preliminary NO GROWTH AFTER 1 DAY 02/23/18 11:00 Aerobic Blood Culture - Preliminary Blood - Venous NO GROWTH AFTER 1 DAY Anaerobic Blood Culture - Preliminary NO GROWTH AFTER 1 DAY Med Orders - Current: Current Medications Albuterol/Ipratropium (Duoneb 3.0-0.5 Mg/3 Ml) 3 ml INH Q4H PRN PRN Reason: Shortness Of Breath/wheezing Last Admin: 02/25/18 07:35 Dose: 3 ml Aspirin (Aspirin) 81 mg PO DAILY [facility] Last Admin: 02/24/18 08:28 Dose: 81 mg Bumetanide (Bumex) 1 mg PO DAILY [facility] Last Admin: 02/24/18 10:21 Dose: 1 mg Carvedilol (Coreg) 25 mg PO DAILY [facility] Last Admin: 02/24/18 08:28 Dose: 25 mg Doxepin HCl (Sinequan) 25 mg PO BEDTIME [facility] Last Admin: 02/24/18 20:44 Dose: 25 mg Hydrocortisone (Cortef) 10 mg PO DAILY [facility] Last Admin: 02/24/18 10:22 Dose: 10 mg Levofloxacin/Dextrose 250 mg/ (Premix) 50 mls @ 50 mls/hr IV Q24H [facility] Last Admin: 02/24/18 12:40 Dose: 50 mls/hr Magnesium Oxide (Magnesium Oxide) 400 mg PO DAILY [facility] Last Admin: 02/24/18 10:22 Dose: 400 mg Mometasone Furoate/Formoterol Fumar (Dulera 200-5 Mcg) 2 puff IH BID [facility] Last Admin: 02/24/18 20:44 Dose: 2 puff Prednisone (Prednisone) 20 mg PO BID [facility] Last Admin: 02/24/18 20:44 Dose: 20 mg Sodium Chloride (Saline Flush) 10 ml FLUSH ASDIRECTED PRN PRN Reason: Keep Vein Open Last Admin: 02/24/18 20:44 Dose: 10 ml Tiotropium [place] (Spiriva Handihaler) 18 mcg INH DAILY [facility] Last Admin: 02/24/18 10:22 Dose: 1 inhalation Discontinued Medications Albuterol/Ipratropium (Duoneb 3.0-0.5 Mg/3 Ml) 3 ml NEB ONETIME ONE Stop: 02/23/18 07:42 Last Admin: 02/23/18 08:20 Dose: 3 ml Albuterol/Ipratropium (Duoneb 3.0-0.5 Mg/3 Ml) 3 ml INH ONETIME PRN PRN Reason: Shortness Of Breath/wheezing Levofloxacin/Dextrose 500 mg/ (Premix) 100 mls @ 100 mls/hr IV ONETIME ONE Stop: 02/23/18 12:05 Last Admin: 02/23/18 13:33 Dose: 100 mls/hr Levofloxacin/Dextrose 500 mg/ (Premix) 100 mls @ 100 mls/hr IV Q24H [facility] Sodium Chloride (Normal Saline) 1,000 mls @ 100 mls/hr IV ASDIRECTED [facility] Stop: 02/24/18 19:00 Last Admin: 02/24/18 08:22 Dose: 100 mls/hr Iopamidol (Isovue-370 (76%)) 75 ml IV ASDIRECTED ONE Stop: 02/23/18 18:58 Last Admin: 02/23/18 19:21 Dose: 75 ml Mometasone Furoate/Formoterol Fumar (Dulera 200-5 Mcg) 2 puff IH BID [facility] Last Admin: 02/23/18 21:57 Dose: 2 puff Prednisone (Prednisone) Confirm Administered Dose 20 mg .ROUTE .STK-MED ONE Stop: 02/23/18 20:10 Last Admin: 02/23/18 20:16 Dose: Not Given - Exam Quality Assessment: Supplemental Oxygen General: Alert Neck: No Thyromegaly Lungs: Normal Respiratory Effort, Decreased Breath Sounds, Rales Cardiovascular: Regular Rate, Regular Rhythm Neurological: No New Focal Deficit Psy/Mental Status: Alert, Normal Affect, Normal Mood - Problem List & Annotations (1) CAP (community acquired pneumonia) SNOMED Code(s): 940839940 Code(s): J18.9 - PNEUMONIA, UNSPECIFIED ORGANISM Status: Acute Current Visit: Yes Qualifiers: Laterality: right (2) COPD (chronic obstructive pulmonary disease) SNOMED Code(s): 63237146 Code(s): J44.9 - CHRONIC OBSTRUCTIVE PULMONARY DISEASE, UNSPECIFIED Status : Acute Current Visit: Yes Qualifiers: COPD type: COPD with acute exacerbation Qualified Code(s): J44.1 - Chronic obstructive pulmonary disease with (acute) exacerbation (3) H/O: lung cancer SNOMED Code(s): 882988075, 779820089 Code(s): Z85.118 - PERSONAL HISTORY OF MALIGNANT NEOPLASM OF BRONCHUS AND LUNG Status: Acute Current Visit: Yes (4) H/O CHF SNOMED Code(s): 990777426 Code(s): Z86.79 - PERSONAL HISTORY OF OTHER DISEASES OF THE CIRCULATORY SYSTEM Status: Chronic Current Visit: Yes (5) Addisons disease SNOMED Code(s): 974314652 Code(s): E27.1 - PRIMARY ADRENOCORTICAL INSUFFICIENCY Status: Chronic Current Visit: Yes (6) Lymphoma SNOMED Code(s): 936465233 Code(s): C85.90 - NON-HODGKIN LYMPHOMA, UNSPECIFIED, UNSPECIFIED SITE Status: Acute Current Visit: Yes Qualifiers: Non-follicular lymphoma type: mantle cell (7) HTN (hypertension) SNOMED Code(s): 29843677 Code(s): I10 - ESSENTIAL (PRIMARY) HYPERTENSION Status: Chronic Current Visit: Yes Qualifiers: Hypertension type: essential hypertension Qualified Code(s): I10 - Essential (primary) hypertension (8) CKD (chronic kidney disease) SNOMED Code(s): 475691398 Code(s): N18.9 - CHRONIC KIDNEY DISEASE, UNSPECIFIED Status: Chronic Current Visit: Yes Qualifiers: Chronic kidney disease stage: stage 3 (moderate) Qualified Code(s): N18.3 - Chronic kidney disease, stage 3 (moderate) - Problem List Review Problem List Initiated/Reviewed/Updated: Yes - My Orders Last 24 Hours: My Active Orders 02/24/18 09:00 Aspirin 81 mg PO DAILY Carvedilol [Coreg] 25 mg PO DAILY Hydrocortisone [Cortef] 10 mg PO DAILY Magnesium Oxide 400 mg PO DAILY Tiotropium [Spiriva HandiHaler] 18 mcg INH DAILY 02/24/18 12:40 IS (RT) [RT Incentive Spirometry] [RC] ASDIRECTED 02/24/18 13:00 Levofloxacin/Dextrose 5%-Water [Levaquin in D5W 250 MG/50 ML] 250 mg Premix Bag 1 bag IV Q24H 02/26/18 05:11 BASIC METABOLIC PANEL,BMP [CHEM] AM CBC WITH AUTO DIFF [HEME] AM PRO B-TYPE NATRIUR PEPT,BNPPRO [CHEM] DAILY - Plan Plan:: Zac has improved but still needing continuous O2. At home he only uses 2L at night. I feel that he'll benefit from one more day of hospitalization with IV Levaquin and oral prednisone. Consider discharge tomorrow morning.
[2018-02-25] MEDS: Bumetanide 2 MG Tab PO SCH (09:01)
[2018-02-25] MEDS: Hydrocortisone 20 MG Tab PO SCH (09:01)
[2018-02-25] MEDS: Carvedilol 25 MG Tab PO SCH (09:01)
[2018-02-25] MEDS: Aspirin 81 MG Tab.Chew PO SCH (09:01)
[2018-02-25] MEDS: Magnesium Oxide 400 MG Tab PO SCH (09:02)
[2018-02-25] MEDS: Formoterol/Mometasone 200-5 MCG 8.8 GM Inhaler IH SCH ×2 (09:02→20:26)
[2018-02-25] MEDS: predniSONE 20 MG Tab PO SCH ×2 (09:02→20:27)
[2018-02-25] MEDS: Tiotropium Inhaler 18 MCG Inhalation Powder Cap Kit of 5 INH SCH (09:02)
[2018-02-25] MEDS: Levofloxacin/Dextrose 5%-Water 250 MG in Premix Bag 1 BAG IV SCH (13:19)
[2018-02-25] MEDS: Doxepin 25 MG Cap PO SCH (20:27)
[2018-02-26] MEDS: Bumetanide 2 MG Tab PO SCH (08:49)
[2018-02-26] MEDS: Aspirin 81 MG Tab.Chew PO SCH (08:49)
[2018-02-26] MEDS: Magnesium Oxide 400 MG Tab PO SCH (08:50)
[2018-02-26] MEDS: Carvedilol 25 MG Tab PO SCH (08:50)
[2018-02-26] MEDS: Hydrocortisone 20 MG Tab PO SCH (08:50)
[2018-02-26] MEDS: predniSONE 20 MG Tab PO SCH (08:50)
[2018-02-26] MEDS: Tiotropium Inhaler 18 MCG Inhalation Powder Cap Kit of 5 INH SCH (08:51)
[2018-02-26] MEDS: Formoterol/Mometasone 200-5 MCG 8.8 GM Inhaler IH SCH (08:54)
[2018-02-26] MEDS: Albuterol/Ipratropium 3.0-0.5 MG/3 ML Neb Soln INH PRN (09:28)
[2018-02-26] MEDS ORDERED: Levofloxacin 250 MG Tab PO ONE (13:11)
[2018-02-26] MEDS: Levofloxacin/Dextrose 5%-Water 250 MG in Premix Bag 1 BAG IV SCH (13:22)
[2018-02-26 13:25] VITALS: BP 132/72
--- NOTE | 2018-02-26 13:47 | PCM.DCSUM1 ---
Discharge Summary - Hospital Course Free Text/Narrative:: Date of admission: 02/23/18 Date of discharge: 02/26/2018 Admission diagnosis: Right upper lobe pneumonia Discharge diagnosis: Same Consults: None Procedures: Had CT chest which did show right upper lobe infiltrate. 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 He has a history of Gino's disease and COPD and was treated with prednisone but then had increased sputum production which became yellow and increased shortness of breath and so was ultimately hospitalized for right upper lobe infiltrate. Was treated with Levaquin and did well with this. Also was given stress dose steroids at prednisone 20 mg by mouth twice a day. Hospital course: Patient showed gradual improvement and on the day of discharge felt that his breathing was back to normal. However he still was requiring 2 L of oxygen during the day to maintain sats greater than 90%. Condition at time of discharge: No chest pain, no shortness of breath, no nausea or vomiting, no diarrhea. Vital signs were stable. Head was atraumatic, normocephalic. Pupils equally round and reactive. Lungs clear to auscultation. Heart sounds were regular with normal rate and rhythm. I didn't hear any murmurs. Abdomen is soft, nontender, nondistended. No pedal edema. Discharge instructions: Follow-up with Dr. Giron your primary care provider in one week. Patient will be discharged home to continue to follow with home health for medication management and chronic COPD. The patient was seen on the day of discharge for a [id number] evaluation. Patient is homebound. Patient is oxygen dependent and will need oxygen round the clock until his respiratory status returns to baseline. O2 PRN for sats > 90% to keep < 96%. Please discuss with Dr. Giron whether or not you should be on a mineralocorticoid, and stress dosing your Cortef, since you are no longer following with endocrinology. You told us you were taking your coreg 1/2 pill BID. The pharmacist has a 25 mg twice daily order. I recommend we take 1/2 tab coreg twice daily which would be 12.5 mg BID. This may be what you are doing already - double check your pills. Discuss the best dose for you with your regular doctor. - Discharge Data Discharge Date: 02/26/18 Discharge Disposition: Home, W Home Health Agency 06 Condition: Fair - Patient Instructions Diet: Heart Healthy Diet, Low Sodium Notify Provider of: Fever, Nausea and/or Vomiting Other/Special Instructions: Please follow-up with your primary care provider next week. You are not on a mineralocorticoid. Please discuss this with your primary care provider. You have one further dose of antibiotics to take. Please take this tomorrow at noon. You'll have completed your course of antibiotic therapy. - Discharge Plan Prescriptions/Med Rec: RX: Carvedilol 12.5 mg PO BID #30 tablet Levofloxacin [Levaquin] 250 mg PO DAILY #1 tab Home Medications: Home Meds RX: Albuterol [Proventil HFA] 2 puff INH Q4H PRN 12/01/14 [History] RX: Aspirin [Children's Aspirin] 81 mg PO DAILY 12/01/14 [History] RX: Bumetanide [Bumex] 0.5 mg PO MOWEFR 12/01/14 [History] RX: Cholecalciferol (Vitamin D3) [Vitamin D3] 1,000 unit PO DAILY 12/01/14 [ History] RX: Doxepin [SINEquan] 25 mg PO BEDTIME 12/01/14 [History] RX: Hydrocortisone [Cortef] 10 mg PO DAILY 12/01/14 [History] RX: Magnesium Oxide [Magnesium] 500 mg PO DAILY 12/01/14 [History] RX: Calcium Carbonate [Calcium] 500 mg PO DAILY 02/23/18 [History] RX: Fluticasone/Salmeterol [Advair 250-50] 1 puff IH BID 02/23/18 [History] RX: Lisinopril 10 mg PO DAILY 02/23/18 [History] RX: Umeclidinium [place] [Incruse Ellipta*] 1 puff IH DAILY 02/23/18 [History] Levofloxacin [Levaquin] 250 mg PO DAILY #1 tab 02/26/18 [Rx] RX: Carvedilol 12.5 mg PO BID #30 tablet 02/26/18 [Rx] Patient Handouts: Home Oxygen Use, Adult, Community-Acquired Pneumonia, Adult Forms: ED Department Discharge Referrals: Xavier Giron MD [Primary Care Provider] - - Discharge Summary/Plan Comment DC Time >30 min.: Yes - Patient Data Vitals - Most Recent: Last Vital Signs Temp 36.8 C 02/26/18 12:20 Pulse 62 02/26/18 12:20 Resp 20 02/26/18 12:20 BP 132/72 02/26/18 12:20 Pulse Ox 95 02/26/18 12:20 Weight - Most Recent: 77.927 kg Lab Results - Last 24 hrs: Laboratory Results - last 24 hr 02/26/18 02/26/18 02/26/18 Range/Units 06:55 06:55 06:55 WBC 11.6 (4.5-12.0) X10-3/uL RBC 3.95 L (4.30-5.75) x10(6)uL Hgb 12.5 (11.5-15.5) g/dL Hct 37.3 (30.0-51.3) % MCV 94.4 (80-96) fL MCH 31.6 (27.7-33.6) pg MCHC 33.4 (32.2-35.4) g/dL RDW 13.7 (11.5-15.5) % Plt Count 147 (125-369) X10(3)uL MPV 9.1 (7.4-10.4) fL Add Manual Diff Yes Neutrophils % (Manual) 78 (46-82) % Band Neutrophils % 5 (0-6) % Lymphocytes % (Manual) 10 L (13-37) % Monocytes % (Manual) 5 (4-12) % Eosinophils % (Manual) 2 (0-5) % Sodium 139 (135-145) mmol/L Potassium 4.3 (3.5-5.3) mmol/L Chloride 103 (100-110) mmol/L Carbon Dioxide 29 (21-32) mmol/L BUN 46 H (7-18) mg/dL Creatinine 1.7 H (0.70-1.30) mg/dL Est Cr Clr Drug Dosing 33.50 mL/min Estimated GFR (MDRD) 39 L (>60) BUN/Creatinine Ratio 27.1 H (9-20) Glucose 166 H (80-116) mg/dL Calcium 8.8 (8.6-10.2) mg/dL NT-Pro-B Natriuret Pep 748 H (<=450) pg/mL JACOBY Results - Last 24 hrs: Microbiology 02/23/18 11:08 Aerobic Blood Culture - Preliminary Blood - Venous - Lab Draw NO GROWTH AFTER 3 DAYS Anaerobic Blood Culture - Preliminary NO GROWTH AFTER 3 DAYS 02/23/18 11:00 Aerobic Blood Culture - Preliminary Blood - Venous NO GROWTH AFTER 3 DAYS Anaerobic Blood Culture - Preliminary NO GROWTH AFTER 3 DAYS Med Orders - Current: Current Medications Albuterol/Ipratropium (Duoneb 3.0-0.5 Mg/3 Ml) 3 ml INH Q4H PRN PRN Reason: Shortness Of Breath/wheezing Last Admin: 02/26/18 09:28 Dose: 3 ml Aspirin (Aspirin) 81 mg PO DAILY [facility] Last Admin: 02/26/18 08:49 Dose: 81 mg Bumetanide (Bumex) 1 mg PO DAILY [facility] Last Admin: 02/26/18 08:49 Dose: 1 mg Carvedilol (Coreg) 25 mg PO DAILY [facility] Last Admin: 02/26/18 08:50 Dose: 25 mg Doxepin HCl (Sinequan) 25 mg PO BEDTIME [facility] Last Admin: 02/25/18 20:27 Dose: 25 mg Hydrocortisone (Cortef) 10 mg PO DAILY [facility] Last Admin: 02/26/18 08:50 Dose: 10 mg Magnesium Oxide (Magnesium Oxide) 400 mg PO DAILY [facility] Last Admin: 02/26/18 08:50 Dose: 400 mg Mometasone Furoate/Formoterol Fumar (Dulera 200-5 Mcg) 2 puff IH BID [facility] Last Admin: 02/26/18 08:54 Dose: 2 puff Prednisone (Prednisone) 20 mg PO BID [facility] Last Admin: 02/26/18 08:50 Dose: 20 mg Sodium Chloride (Saline Flush) 10 ml FLUSH ASDIRECTED PRN PRN Reason: Keep Vein Open Last Admin: 02/24/18 20:44 Dose: 10 ml Tiotropium [place] (Spiriva Handihaler) 18 mcg INH DAILY [facility] Last Admin: 02/26/18 08:51 Dose: 1 inhalation Discontinued Medications Albuterol/Ipratropium (Duoneb 3.0-0.5 Mg/3 Ml) 3 ml NEB ONETIME ONE Stop: 02/23/18 07:42 Last Admin: 02/23/18 08:20 Dose: 3 ml Albuterol/Ipratropium (Duoneb 3.0-0.5 Mg/3 Ml) 3 ml INH ONETIME PRN PRN Reason: Shortness Of Breath/wheezing Levofloxacin/Dextrose 500 mg/ (Premix) 100 mls @ 100 mls/hr IV ONETIME ONE Stop: 02/23/18 12:05 Last Admin: 02/23/18 13:33 Dose: 100 mls/hr Levofloxacin/Dextrose 500 mg/ (Premix) 100 mls @ 100 mls/hr IV Q24H [facility] Sodium Chloride (Normal Saline) 1,000 mls @ 100 mls/hr IV ASDIRECTED [facility] Stop: 02/24/18 19:00 Last Admin: 02/24/18 08:22 Dose: 100 mls/hr Levofloxacin/Dextrose 250 mg/ (Premix) 50 mls @ 50 mls/hr IV Q24H [facility] Last Admin: 02/26/18 13:22 Dose: Not Given Iopamidol (Isovue-370 (76%)) 75 ml IV ASDIRECTED ONE Stop: 02/23/18 18:58 Last Admin: 02/23/18 19:21 Dose: 75 ml Levofloxacin (Levaquin) 250 mg PO ONETIME ONE Stop: 02/26/18 13:12 Last Admin: 02/26/18 13:20 Dose: 250 mg Mometasone Furoate/Formoterol Fumar (Dulera 200-5 Mcg) 2 puff IH BID [facility] Last Admin: 02/23/18 21:57 Dose: 2 puff Prednisone (Prednisone) Confirm Administered Dose 20 mg .ROUTE .STK-MED ONE Stop: 02/23/18 20:10 Last Admin: 02/23/18 20:16 Dose: Not Given
== END 2018-02-26 13:55 | disposition home health service (06) | DRG 190 ==
LOC: FB.ED 07:19 → FB.MS 11:03
PROVIDERS: ADMIT Family Medicine; ATTEND Family Medicine
DX: J44.0 Chronic obstructive pulmonary disease with (acute) lower respiratory infection (principal); J18.9 Pneumonia, unspecified organism; E27.1 Primary adrenocortical insufficiency; C83.10 Mantle cell lymphoma, unspecified site; J44.1 Chronic obstructive pulmonary disease with (acute) exacerbation; I12.9 Hypertensive chronic kidney disease with stage 1 through stage 4 chronic kidney disease, or unspecified chronic kidney disease; N18.3 Chronic kidney disease, stage 3 (moderate); Z87.891 Personal history of nicotine dependence; Z86.79 Personal history of other diseases of the circulatory system; R06.02 Shortness of breath; R05 Cough; Z99.81 Dependence on supplemental oxygen; Z85.118 Personal history of other malignant neoplasm of bronchus and lung; Z87.01 Personal history of pneumonia (recurrent); Z85.820 Personal history of malignant melanoma of skin; Z79.82 Long term (current) use of aspirin; Z79.52 Long term (current) use of systemic steroids; Z88.8 Allergy status to other drugs, medicaments and biological substances
CPT/HCPCS: 36415; 71046; 80048; 83605; 85025; 87040; 94640; 99285; J7620; 71260; 80053; 83880; 94150; A9270-GY; J1956; J7030; J7050; Q9967

== ENCOUNTER 2018-04-19 09:07 | Emergency (ER) | payer MEDICARE, OTHER ==
--- NOTE | 2018-04-19 09:27 | EDM.PDOC ---
ED HPI GENERAL MEDICAL PROBLEM - General Chief Complaint: Syncope Stated Complaint: synocpy Time Seen by Provider: 04/19/18 09:10 Source of Information: Reports: Patient, Family, Old Records History Limitations: Reports: No Limitations - History of Present Illness INITIAL COMMENTS - FREE TEXT/NARRATIVE: Zac was visiting with son in law this am when he became light headed and informed son in law he felt like passing out. He was lowered to the floor and experienced no LOC. Upon returning to a chair with assistance, he had similar sxs again and was watched for several minutes before sxs subsided. He was then driven to ED by daughter. Upon arrival, VSS, EKG notes NSR with occ PVC, VR 62. His 02 sats 92% on RA. He is asx. - Related Data Allergies Allergy/AdvReac Type Severity Reaction Status Date / Time furosemide [From Lasix] Allergy Cannot Verified 04/19/18 09:39 Remember Home Meds: Home Meds Albuterol [Proventil HFA] 2 puff INH Q4H PRN 12/01/14 [History] Aspirin [Children's Aspirin] 81 mg PO DAILY 12/01/14 [History] Bumetanide [Bumex] 0.5 mg PO MOWEFR 12/01/14 [History] Cholecalciferol (Vitamin D3) [Vitamin D3] 1,000 unit PO DAILY 12/01/14 [History] Doxepin [SINEquan] 25 mg PO BEDTIME 12/01/14 [History] Hydrocortisone [Cortef] 10 mg PO DAILY 12/01/14 [History] Magnesium Oxide [Magnesium] 500 mg PO DAILY 12/01/14 [History] Calcium Carbonate [Calcium] 500 mg PO DAILY 02/23/18 [History] Fluticasone/Salmeterol [Advair 250-50] 1 puff IH BID 02/23/18 [History] Lisinopril 10 mg PO DAILY 02/23/18 [History] Umeclidinium [place] [Incruse Ellipta*] 1 puff IH DAILY 02/23/18 [History] Carvedilol 12.5 mg PO BID #30 tablet 02/26/18 [Rx] Past Medical History Cardiovascular History: Reports: Hypertension Respiratory History: Reports: COPD, Pneumonia, Recurrent Other Respiratory History: hx of lung ca with "tumors removed twice" one from each lung Endocrine/Metabolic History: Reports: Gino's Disease Oncologic (Cancer) History: Reports: Lung, Lymphoma, Other (See Below) Other Oncologic History: "skin cancer" Dermatologic History: Reports: Melanoma, Other (See Below) Other Dermatologic History: "skin cancer with leisons remove frequently" - Infectious Disease History Infectious Disease History: Reports: Chicken Pox, Measles, Mumps, Shingles - Past Surgical History Head Surgeries/Procedures: Reports: None Social & Family History - Family History Family Medical History: Noncontributory - Caffeine Use Caffeine Use: Reports: Coffee ED ROS GENERAL - Review of Systems Review Of Systems: ROS reveals no pertinent complaints other than HPI. - Physical Exam Exam: See Below Exam Limited By: No Limitations General Appearance: Alert, WD/WN, No Apparent Distress Eye Exam: Bilateral Eye: EOMI, Normal Inspection, PERRL Ears: Normal External Exam, Hearing Loss Nose: Normal Inspection Throat/Mouth: Normal Inspection, Normal Voice Head Exam: Normocephalic Neck: Normal Inspection, Supple, Non-Tender Respiratory/Chest: Lungs Clear, Normal Breath Sounds, No Accessory Muscle Use Cardiovascular: Regular Rate, Rhythm, No Murmur, Other (occ PVCs) GI/Abdominal: Normal Bowel Sounds, Soft, Non-Tender, No Organomegaly, No Distention, No Mass (Male) Exam: Deferred Rectal (Males) Exam: Deferred Neuro Exam (Abbreviated): Alert, Oriented, CN II-XII Intact, No Motor/Sensory Deficits Back Exam: Normal Inspection Extremities: Normal Inspection Psychiatric: Normal Affect, Normal Mood Skin Exam: Warm, Dry, Intact, Normal Color Course - Vital Signs Text/Narrative:: Zac remained stable at the [facility] ED. No meds were dispensed. He will be discharged to follow up with PCP. Last Recorded V/S: Last Vital Signs Temp 36.4 C 04/19/18 09:10 Pulse Resp 19 04/19/18 09:30 BP 110/59 L 04/19/18 10:00 Pulse Ox 93 L 04/19/18 10:00 - Orders/Labs/Meds Orders: Active Orders 24 hr Category Date Time Status EKG 12 Lead [EK] Routine Ther 04/19/18 09:20 Ordered Labs: Laboratory Tests 04/19/18 04/19/18 04/19/18 Range/Units 09:35 09:35 09:35 WBC 7.6 (4.5-12.0) X10-3/uL RBC 4.04 L (4.30-5.75) x10(6)uL Hgb 13.0 (11.5-15.5) g/dL Hct 37.9 (30.0-51.3) % MCV 93.8 (80-96) fL MCH 32.3 (27.7-33.6) pg MCHC 34.4 (32.2-35.4) g/dL RDW 13.9 (11.5-15.5) % Plt Count 136 (125-369) X10(3)uL MPV 8.8 (7.4-10.4) fL Neut % (Auto) 77.2 (46-82) % Lymph % (Auto) 10.0 L (13-37) % [place] % (Auto) 6.7 (4-12) % Eos % (Auto) 5 (1.0-5.0) % Baso % (Auto) 1 (0-2) % Neut # (Auto) 5.8 (1.6-8.3) # Lymph # (Auto) 0.8 (0.6-5.0) # [place] # (Auto) 0.5 (0.0-1.3) # Eos # (Auto) 0.4 (0.0-0.8) # Baso # (Auto) 0.1 (0.0-0.2) # Sodium 138 (135-145) mmol/L Potassium 4.4 (3.5-5.3) mmol/L Chloride 104 (100-110) mmol/L Carbon Dioxide 28 (21-32) mmol/L BUN 20 H D (7-18) mg/dL Creatinine 1.9 H (0.70-1.30) mg/dL Est Cr Clr Drug Dosing 29.98 mL/min Estimated GFR (MDRD) 34 L (>60) BUN/Creatinine Ratio 10.5 (9-20) Glucose 109 (80-116) mg/dL Calcium 9.2 (8.6-10.2) mg/dL Troponin I < 0.017 L (<0.017-0.056) ng/mL Departure - Departure Time of Disposition: 10:38 Disposition: Home, Self-Care 01 Condition: Good Clinical Impression: Near syncope - Discharge Information *PRESCRIPTION DRUG MONITORING PROGRAM REVIEWED*: Not Applicable *COPY OF PRESCRIPTION DRUG MONITORING REPORT IN PATIENT JOHANNA: Not Applicable Referrals: Xavier Giron MD [Primary Care Provider] - Forms: ED Department Discharge - Problem List & Annotations (1) Near syncope SNOMED Code(s): 894219234 Code(s): R55 - SYNCOPE AND COLLAPSE Status: Acute Current Visit: Yes Annotation/Comment:: Near syncope. I suggested a discussion with PCP regarding managment of Addisons Disease and utility of Florinef or increased dose of hydrocortisone. - Problem List Review Problem List Initiated/Reviewed/Updated: Yes - My Orders Last 24 Hours: My Active Orders 04/19/18 09:20 EKG 12 Lead [EK] Routine - Assessment/Plan Last 24 Hours: My Active Orders 04/19/18 09:20 EKG 12 Lead [EK] Routine Plan: Follow up with PCP.
[2018-04-19 12:46] VITALS: BP 122/59
== END 2018-04-19 11:13 | disposition home or self-care (01) ==
LOC: FB.ED 09:07
DX: R55 Syncope and collapse (principal); I10 Essential (primary) hypertension; J44.9 Chronic obstructive pulmonary disease, unspecified; Z87.01 Personal history of pneumonia (recurrent); Z88.8 Allergy status to other drugs, medicaments and biological substances; Z79.82 Long term (current) use of aspirin; Z79.899 Other long term (current) drug therapy; Z99.81 Dependence on supplemental oxygen
CPT/HCPCS: 36415; 80048; 84484; 85025; 93005; 99283; 99284

== ENCOUNTER 2019-01-25 08:49 | Inpatient (IN) | payer MEDICARE, OTHER ==
[2019-01-25] MEDS ORDERED: Sodium Chloride 0.9% 10 ML Syringe FLUSH PRN (09:29)
[2019-01-25] MEDS ORDERED: Sodium Chloride 0.9% 1,000 ML IV ONE (09:31)
[2019-01-25] MEDS ORDERED: Ondansetron 4 MG/2 ML SDV IVPUSH ONE (09:31)
[2019-01-25] MEDS ORDERED: Hydrocortisone Sodium Succinate 100 MG/2 ML SDV IVPUSH ONE (09:33)
--- NOTE | 2019-01-25 09:47 | EDM.PDOC ---
ED HPI GENERAL MEDICAL PROBLEM - General Chief Complaint: Abdominal Pain Stated Complaint: STOMACH PAIN Time Seen by Provider: 01/25/19 09:07 Source of Information: Reports: Patient History Limitations: Reports: No Limitations - History of Present Illness INITIAL COMMENTS - FREE TEXT/NARRATIVE: 83-year-old male who reports onset Thursday with diffuse/mid abdominal discomfort and bloating associated with nausea and diarrhea. He reports that he had diarrhea 2 today. There's been no blood in it. He rates the pain in his abdomen as a 5/10. It is a bloated feeling and a nausea feeling. He has had no emesis. He has had no appetite. His by mouth intake has been decreased. No fevers or chills. He has felt somewhat weak. No syncope or presyncope. No chest pain. No shortness of breath. However, his son feels that he looks more short of breath. No back pain. The abdominal pain does not radiate. The pain is made somewhat worse with palpation but there are really no alleviating or exacerbating factors. There are no other associated signs or symptoms. There are no other modifying factors. Onset: Other (3 days ago) Duration: Constant Location: Reports: Abdomen Quality: Reports: Dull, Other (Bloating and nausea) Severity: Moderate Improves with: Reports: None Worsens with: Reports: None Context: Reports: Other (Variable) Associated Symptoms: Reports: Loss of Appetite, Nausea/Vomiting, Weakness Treatments RN ADMISSION: Reports: Other (see below) Other Treatments RN ADMISSION: Nothing ABD Pain Score (Numeric/FACES): 5 - Related Data Allergies Allergy/AdvReac Type Severity Reaction Status Date / Time furosemide [From Lasix] Allergy Cannot Verified 01/25/19 09:16 Remember Home Meds: Home Meds Albuterol [Proventil HFA] 2 puff INH Q4H PRN 12/01/14 [History] Aspirin [Children's Aspirin] 81 mg PO DAILY 12/01/14 [History] Bumetanide [Bumex] 0.5 mg PO MOWEFR 12/01/14 [History] Cholecalciferol (Vitamin D3) [Vitamin D3] 1,000 unit PO DAILY 12/01/14 [History] Doxepin [SINEquan] 25 mg PO BEDTIME 12/01/14 [History] Hydrocortisone [Cortef] 10 mg PO DAILY 12/01/14 [History] Fluticasone/Salmeterol [Advair 250-50] 1 puff IH BID 02/23/18 [History] Umeclidinium Mcfaddin [Incruse Ellipta*] 1 puff IH DAILY 02/23/18 [History] Carvedilol 25 mg PO BID 01/25/19 [History] Colchicine [Colcrys] 1.2 mg PO DAILY 01/25/19 [History] Famotidine 20 mg PO DAILY 01/25/19 [History] Mupirocin Cream [Bactroban Crm] 1 applic TOP TID 01/25/19 [History] Past Medical History Cardiovascular History: Reports: Hypertension Respiratory History: Reports: COPD, Pneumonia, Recurrent Other Respiratory History: hx of lung ca with "tumors removed twice" one from each lung 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 Oncologic (Cancer) History: Reports: Lung, Lymphoma, Other (See Below) Other Oncologic History: "skin cancer" Dermatologic History: Reports: Melanoma, Other (See Below) Other Dermatologic History: "skin cancer with leisons remove frequently" - Infectious Disease History Infectious Disease History: Reports: Chicken Pox, Measles, Mumps, Shingles - Past Surgical History Respiratory Surgical History: Reports: Thoracotomy (Bilateral with removal of tumors) Male Surgical History: Reports: Prostate Biopsy, Other (See Below) ( Radiation seed implants and prostate) Dermatological Surgical History: Reports: Other (See Below) (Multiple skin cancers removed) Social & Family History - Tobacco Use Smoking Status *Q: Former Smoker (Quit 20 years ago) Used Tobacco, but Quit: Yes Month/Year Tobacco Last Used: 1979 - Caffeine Use Caffeine Use: Reports: Coffee - Alcohol Use Alcohol Use History: Yes Alcohol Use Frequency: Daily (Drinks one beer a day.) - Living Situation & Occupation Occupation: Retired Social History Comment: He lives independently. He is here with his son. ED ROS GENERAL - Review of Systems Review Of Systems: See Below Constitutional: Reports: Weakness, Fatigue HEENT: Reports: Other (Dry mouth) Respiratory: Reports: No Symptoms Cardiovascular: Reports: No Symptoms Endocrine: Reports: No Symptoms GI/Abdominal: Reports: Abdominal Pain, Diarrhea, Nausea : Reports: No Symptoms Musculoskeletal: Reports: No Symptoms Skin: Reports: No Symptoms Neurological: Reports: No Symptoms Hematologic/Lymphatic: Reports: No Symptoms Immunologic: Reports: No Symptoms ED EXAM, GI/ABD - Physical Exam Exam: See Below Exam Limited By: No Limitations General Appearance: Alert, WD/WN, No Apparent Distress Eyes: Bilateral: Normal Appearance, EOMI Ears: Normal External Exam, Hearing Grossly Normal Nose: Normal Inspection, Normal Mucosa, No Blood Throat/Mouth: Normal Voice, No Airway Compromise, Other (Dry mucous membranes) Neck: Normal Inspection, Supple, Non-Tender, Full Range of Motion Respiratory/Chest: No Respiratory Distress, Lungs Clear, No Accessory Muscle Use , Other (Poor air movement bilaterally.). No: Accessory Muscle Use Cardiovascular: Normal Peripheral Pulses, Regular Rate, Rhythm, No Gallop, No JVD GI/Abdominal Exam: Normal Bowel Sounds, Soft, No Organomegaly, No Mass, Tender ( Mildly tender with palpation.) Back Exam: Normal Inspection Extremities: Normal Inspection, Normal Range of Motion, Non-Tender, No Pedal Edema, Normal Capillary Refill Neurological: Alert, Oriented, CN II-XII Intact, Normal Cognition, No Motor/ Sensory Deficits Psychiatric: Normal Affect Skin Exam: Warm, Dry, Intact, Normal Color, No Rash Lymphatic: No Adenopathy Course - Vital Signs Last Recorded V/S: Last Vital Signs Temp 36.4 C 01/25/19 11:26 Pulse 83 01/25/19 11:26 Resp 18 01/25/19 11:26 BP 97/46 L 01/25/19 11:26 Pulse Ox 90 L 01/25/19 11:26 Orthostatic Blood Pressure [ 91/50 Standing] Orthostatic Blood Pressure [ 93/43 Sitting] Orthostatic Blood Pressure [ 99/43 Supine] - Orders/Labs/Meds Orders: Active Orders 24 hr Category Date Time Status Patient Status Manage Transfer [TRANSFER] Routine ADT 01/25/19 11:51 Ordered Orthostatic Vital Signs [RC] ASDIRECTED Care 01/25/19 09:34 Active Oxygen Therapy Adult [Oxygen Therapy, ED] [RC] Care 01/25/19 11:43 Active ASDIRECTED Abdomen Pelvis wo Cont [CT] Stat Exams 01/25/19 09:29 Taken Chest 2V [CR] Stat Exams 01/25/19 10:40 Taken CULTURE BLOOD [BC] Urgent Lab 01/25/19 10:55 Received CULTURE BLOOD [BC] Urgent Lab 01/25/19 11:05 Received Sodium Chloride 0.9% [Normal Saline] 1,000 ml Med 01/25/19 11:45 Active IV ASDIRECTED Sodium Chloride 0.9% [Saline Flush] Med 01/25/19 09:29 Active 10 ml FLUSH ASDIRECTED PRN Blood Culture x2 Reflex Set [OM.PC] Urgent Oth 01/25/19 10:46 Ordered Peripheral IV Insertion Adult [OM.PC] Routine Oth 01/25/19 09:29 Ordered Medication Orders Sodium Chloride (Normal Saline) 1,000 mls @ 150 mls/hr IV ASDIRECTED SY Last Admin: 01/25/19 11:18 Dose: 150 mls/hr Sodium Chloride (Saline Flush) 10 ml FLUSH ASDIRECTED PRN PRN Reason: Keep Vein Open Last Admin: 01/25/19 09:49 Dose: 10 ml Labs: Laboratory Tests 01/25/19 01/25/19 01/25/19 Range/Units 09:50 09:50 09:50 WBC 13.9 H (4.5-12.0) X10-3/uL RBC 4.35 (4.30-5.75) x10(6)uL Hgb 13.4 L (13.5-17.8) g/dL Hct 40.2 (30.0-51.3) % MCV 92.5 (80-96) fL MCH 30.9 (27.7-33.6) pg MCHC 33.4 (32.2-35.4) g/dL RDW 13.3 (11.5-15.5) % Plt Count 95 L (125-369) X10(3)uL MPV 9.2 (7.4-10.4) fL Add Manual Diff Yes Neutrophils % (Manual) 91 H (46-82) % Band Neutrophils % 1 (0-6) % Lymphocytes % (Manual) 5 L (13-37) % Monocytes % (Manual) 3 L (4-12) % PT 11.4 H (8.7-11.1) INR 1.18 H (0.89-1.13) Sodium 139 (135-145) mmol/L Potassium 4.4 (3.5-5.3) mmol/L Chloride 104 (100-110) mmol/L Carbon Dioxide 28 (21-32) mmol/L BUN 35 H D (7-18) mg/dL Creatinine 2.4 H* (0.70-1.30) mg/dL Est Cr Clr Drug Dosing 23.32 mL/min Estimated GFR (MDRD) 26 L (>60) BUN/Creatinine Ratio 14.6 (9-20) Glucose 92 (80-116) mg/dL Lactic Acid (0.4-2.2) mmol/L Calcium 9.2 (8.6-10.2) mg/dL Total Bilirubin 1.1 (0.1-1.3) mg/dL AST 20 D (5-25) IU/L ALT 19 (12-36) U/L Alkaline Phosphatase 54 L (56-112) IU/L Total Protein 6.3 (6.0-8.0) g/dL Albumin 3.2 (3.2-4.6) g/dL Globulin 3.1 g/dL Albumin/Globulin Ratio 1.0 Amylase 54 (25-115) U/L Urine Color (YELLOW) Urine Appearance (CLEAR) Urine pH (5.0-6.5) Ur Specific [place] (1.010-1.025) Urine Protein (NEGATIVE) mg/dL Urine Glucose (UA) (NORMAL) mg/dL Urine Ketones (NEGATIVE) mg/dL Urine Occult Blood (NEGATIVE) Urine Nitrite (NEGATIVE) Urine Bilirubin (NEGATIVE) Urine Urobilinogen (NEGATIVE) mg/dL Ur Leukocyte Esterase (NEGATIVE) Urine WBC (0-5) Ur Squamous Epith Cells (NS,R,O) Urine Bacteria (NS) 01/25/19 01/25/19 Range/Units 09:50 10:11 WBC (4.5-12.0) X10-3/uL RBC (4.30-5.75) x10(6)uL Hgb (13.5-17.8) g/dL Hct (30.0-51.3) % MCV (80-96) fL MCH (27.7-33.6) pg MCHC (32.2-35.4) g/dL RDW (11.5-15.5) % Plt Count (125-369) X10(3)uL MPV (7.4-10.4) fL Add Manual Diff Neutrophils % (Manual) (46-82) % Band Neutrophils % (0-6) % Lymphocytes % (Manual) (13-37) % Monocytes % (Manual) (4-12) % PT (8.7-11.1) INR (0.89-1.13) Sodium (135-145) mmol/L Potassium (3.5-5.3) mmol/L Chloride (100-110) mmol/L Carbon Dioxide (21-32) mmol/L BUN (7-18) mg/dL Creatinine (0.70-1.30) mg/dL Est Cr Clr Drug Dosing mL/min Estimated GFR (MDRD) (>60) BUN/Creatinine Ratio (9-20) Glucose (80-116) mg/dL Lactic Acid 1.8 (0.4-2.2) mmol/L Calcium (8.6-10.2) mg/dL Total Bilirubin (0.1-1.3) mg/dL AST (5-25) IU/L ALT (12-36) U/L Alkaline Phosphatase (56-112) IU/L Total Protein (6.0-8.0) g/dL Albumin (3.2-4.6) g/dL Globulin g/dL Albumin/Globulin Ratio Amylase (25-115) U/L Urine Color Yellow (YELLOW) Urine Appearance Slightly cloudy (CLEAR) Urine pH 7.0 H (5.0-6.5) Ur Specific [place] 1.010 (1.010-1.025) Urine Protein Negative (NEGATIVE) mg/dL Urine Glucose (UA) Normal (NORMAL) mg/dL Urine Ketones Negative (NEGATIVE) mg/dL Urine Occult Blood Negative (NEGATIVE) Urine Nitrite Negative (NEGATIVE) Urine Bilirubin Small H (NEGATIVE) Urine Urobilinogen Normal (NEGATIVE) mg/dL Ur Leukocyte Esterase Negative (NEGATIVE) Urine WBC 5-10 H (0-5) Ur Squamous Epith Cells Few H (NS,R,O) Urine Bacteria Few H (NS) Meds: Medications Generic Name Dose Route Start Last Admin Trade Name Freq PRN Reason Stop Dose Admin Sodium Chloride 1,000 mls @ 150 mls/hr 01/25/19 11:45 01/25/19 11:18 Normal Saline IV 150 mls/hr ASDIRECTED SY Administration Sodium Chloride 10 ml 01/25/19 09:29 01/25/19 09:49 Saline Flush FLUSH 10 ml ASDIRECTED PRN Administration Keep Vein Open Discontinued Medications Generic Name Dose Route Start Last Admin Trade Name Freq PRN Reason Stop Dose Admin Hydrocortisone Sodium Succinate 100 mg 01/25/19 09:33 01/25/19 09:49 Solu-Cortef IVPUSH 01/25/19 09:34 100 mg ONETIME ONE Administration Sodium Chloride 1,000 mls @ 999 mls/hr 01/25/19 09:31 01/25/19 09:49 Normal Saline IV 01/25/19 10:31 999 mls/hr .BOLUS ONE Administration Sodium Chloride 500 mls @ 999 mls/hr 01/25/19 10:45 01/25/19 10:47 Normal Saline IV 01/25/19 11:15 999 mls/hr .BOLUS ONE Administration Ondansetron HCl 4 mg 01/25/19 09:31 01/25/19 09:49 Zofran IVPUSH 01/25/19 09:32 4 mg ONETIME ONE Administration - Radiology Interpretation Free Text/Narrative:: CT scan of abdomen and pelvis without IV contrast showed some mildly dilated loops of small bowel that were nonspecific. There was diverticulosis but no evidence of diverticulitis. There was a left lung lower lobe consolidation. This was per the radiologist. Chest x-ray PA and lateral showed a left lower lobe infiltrate and evidence of COPD. - Re-Assessments/Exams Free Text/Narrative Re-Assessment/Exam: 01/25/19 10:45: Patient with continued blood pressure in the 90 systolic range. He is also orthostatic with a blood pressure dropped to 60 systolic with standing. His O2 saturations are borderline. CT scan of the abdomen and pelvis showed left lower lobe infiltrate but nothing intra-abdominally. I will continue IV fluid hydration with normal saline (another bolus at 500 mL) and I will send the patient for a chest x-ray. In addition I have given the patient Solu-Cortef 100 mg IV as a stress dose of steroids. Given his hypotension, hypoxia and pneumonia, the patient will most likely need admission to the hospital. 01/25/19 11:57: Patient has received 1500 mL of normal saline and still has a blood pressure in the 90 systolic range. He is no longer orthostatic. Chest x- ray corroborates a left lower liver infiltrate. Blood cultures 2 have been obtained. This patient's plan of care cannot be safely accomplished as an outpatient as the patient will need therapies which are not amenable to outpatient therapy. He will need continued IV fluid hydration, IV antibiotics, supplemental oxygen and continued close monitoring. He will need a greater then 2 midnight stay to accomplish this plan of care. I have discussed the patient's case with Dr. Love and he will admit the patient. The patient and his son are in agreement with the plans for admission. Departure - Departure Time of Disposition: 12:00 Disposition: Admitted As Inpatient 66 Condition: Fair Clinical Impression: Hypoxia, Acute kidney injury (nontraumatic) Pneumonia Qualifiers: Pneumonia type: due to unspecified organism Laterality: left Lung location: lower lobe of lung Qualified Code(s): J18.1 - Lobar pneumonia, unspecified organism Hypotension Qualifiers: Hypotension type: unspecified hypotension type Qualified Code(s): I95.9 - Hypotension, unspecified - Discharge Information Referrals: PCP,None [Primary Care Provider] - Forms: ED Department Discharge - My Orders Last 24 Hours: My Active Orders 01/25/19 09:29 Abdomen Pelvis wo Cont [CT] Stat Sodium Chloride 0.9% [Saline Flush] 10 ml FLUSH ASDIRECTED PRN Peripheral IV Insertion Adult [OM.PC] Routine 01/25/19 09:34 Orthostatic Vital Signs [RC] ASDIRECTED 01/25/19 10:40 Chest 2V [CR] Stat 01/25/19 10:46 Blood Culture x2 Reflex Set [OM.PC] Urgent 01/25/19 10:55 CULTURE BLOOD [BC] Urgent 01/25/19 11:05 CULTURE BLOOD [BC] Urgent 01/25/19 11:43 Oxygen Therapy Adult [Oxygen Therapy, ED] [RC] ASDIRECTED 01/25/19 11:45 Sodium Chloride 0.9% [Normal Saline] 1,000 ml IV ASDIRECTED 01/25/19 11:51 Patient Status Manage Transfer [TRANSFER] Routine - Assessment/Plan Last 24 Hours: My Active Orders 01/25/19 09:29 Abdomen Pelvis wo Cont [CT] Stat Sodium Chloride 0.9% [Saline Flush] 10 ml FLUSH ASDIRECTED PRN Peripheral IV Insertion Adult [OM.PC] Routine 01/25/19 09:34 Orthostatic Vital Signs [RC] ASDIRECTED 01/25/19 10:40 Chest 2V [CR] Stat 01/25/19 10:46 Blood Culture x2 Reflex Set [OM.PC] Urgent 01/25/19 10:55 CULTURE BLOOD [BC] Urgent 01/25/19 11:05 CULTURE BLOOD [BC] Urgent 01/25/19 11:43 Oxygen Therapy Adult [Oxygen Therapy, ED] [RC] ASDIRECTED 01/25/19 11:45 Sodium Chloride 0.9% [Normal Saline] 1,000 ml IV ASDIRECTED 01/25/19 11:51 Patient Status Manage Transfer [TRANSFER] Routine
[2019-01-25] MEDS ORDERED: Sodium Chloride 0.9% 500 ML IV ONE (10:45)
[2019-01-25] MEDS: Sodium Chloride 0.9% 1,000 ML IV SCH ×2 (11:18→19:15)
--- NOTE | 2019-01-25 12:34 | CT ---
INDICATION: Abdominal pain and diarrhea times [address] ABDOMEN AND PELVIS WITHOUT CONTRAST: Spiral 2.5 mm axial sections were obtained through the abdomen and pelvis without contrast, with sagittal and coronal reconstructions, 01/25/19, and compared with 01/03/11. Total exam DLP = 569.92 mGy-cm. Infiltration is noted in the left lower lobe, compatible with pneumonia. The heart appeared normal in size. No pericardial effusion was noted. A few small low density abnormalities are noted in the lower pole of the right lobe of the liver, etiology indeterminate, especially without IV contrast. These areas were present on the previous examination and likely are of benign origin, as they appear unchanged. No gallstones were demonstrated. The adrenal glands appeared normal. The spleen and pancreas appeared normal. A 3 cm probable benign cystic structure is again noted at the lateral cortex of the mid pole of the left kidney, 40 to 50% exophytic. Renal fascial thickening is noted, compatible with mild degree of renal cortical scarring. There are some irregularities in the renal cortex, compatible with scars. No evidnece of renal calcinosis or obstructive uropathy was seen. What appears to be the appendix appeared normal in caliber - no evidence of appendicitis. No evidence of free air or bowel obstruction was identified. Degenerative changes and disk disease are noted at L3 through S1 with vacuum disk phenomenon. A mild dextroconcave scoliosis of the lumbar spine is noted. No blastic metastatic disease process was seen. Calcifications are noted in the abdominal aorta, at the origin of the celiac axis, in the superior mesenteric artery, renal arteries, iliac and femoral arteries. No aortic aneurysmal dilatation was seen. Distal descending and sigmoid diverticulosis is noted - more prominent in the sigmoid area, without evidence of diverticulitis identified. The urinary bladder wall appears slightly thickened. There are noted radioactive seeds at the prostate. A few loops of slightly thickened wall of small bowel are noted in the left flank, possibly on the basis of enteritis. Only minimal air fluid levels are noted and no significant distention was seen. Findings could represent a degree of enteritis, possibly process such as Crohns disease or gastroenteritis. No evidence of a retroperitoneal mass was seen. No additional mass lesions, organomegaly, or free fluid collections were identified in the abdomen or pelvis. IMPRESSION: 1. Sigmoid and to a lesser extent descending colon diverticulosis is noted without evidence of diverticulitis. 2. ASD. 3. Renal cortical scarring and 3 cm probable benign left renal cyst mid pole area. 4. Degenerative changes and disk disease lumbosacral spine - L3 through S1. 5. Radioactive seeds at the prostate with slight thickening of the urinary bladder wall suggested. 6. No definite evidence of metastatic disease process. 7. Left lower lobe pneumonia with some patchy consolidation noted. 8. A few loops of slightly thickened wall of small bowel are noted in the left flank, possibly on the basis of enteritis. Only minimal air fluid levels are noted and no significant distention was seen. Findings could represent a degree of enteritis, possibly process such as Crohns disease or gastroenteritis. Report was called to Dr. Mari at 1038 hours on 01/25/19. [facility]
[2019-01-25] MEDS ORDERED: Enoxaparin 30 MG/0.3 ML Syringe SUBCUT SCH (13:00)
[2019-01-25] MEDS ORDERED: cefTRIAXone 1 GM in Sodium Chloride 0.9% 50 ML IV SCH ×4 (13:15)
--- NOTE | 2019-01-25 13:48 | CR ---
INDICATION: Left lower lobe pneumonia on CT. CHEST: PA and lateral views of the chest were obtained 01/25/19 and compared with 02/23/18, now revealing infiltrate in the left lower lobe area, which is new compared with the previous study, with blunting of the posterior sulcus, compatible with pneumonia and pleuritis at the left lower lobe. No other consolidating pneumonia or effusion was seen. Findings compatible with COPD are again noted. The heart did not appear grossly enlarged. The aorta is tortuous with calcification in the arch. Bony structures appear to be fairly intact. IMPRESSION: 1. Findings are compatible with left lower lobe pneumonia and pleuritis. 2. ASD aorta. 3. COPD. MTDD
[2019-01-25] MEDS: Albuterol/Ipratropium 3.0-0.5 MG/3 ML Neb Soln NEB SCH ×2 (14:00→19:14)
[2019-01-25] MEDS: methylPREDNISolone Sodium Succinate 40 MG/1 ML SDV IVPUSH SCH ×2 (14:20→21:46)
[2019-01-25] MEDS: cefTRIAXone 1 GM Vial IV SCH (14:26)
[2019-01-25] MEDS: Azithromycin 500 MG in Sodium Chloride 0.9% 250 ML IV SCH (14:43)
[2019-01-25] MEDS: Carvedilol 25 MG Tab PO SCH (20:33)
[2019-01-25] MEDS: Doxepin 25 MG Cap PO SCH (20:33)
[2019-01-26] MEDS: Sodium Chloride 0.9% 1,000 ML IV SCH ×4 (02:07→22:42)
[2019-01-26] MEDS: Albuterol/Ipratropium 3.0-0.5 MG/3 ML Neb Soln NEB SCH ×5 (02:14→19:25)
[2019-01-26] MEDS: methylPREDNISolone Sodium Succinate 40 MG/1 ML SDV IVPUSH SCH ×3 (05:41→21:17)
[2019-01-26] MEDS: Carvedilol 25 MG Tab PO SCH ×2 (08:51→20:26)
[2019-01-26] MEDS ORDERED: Colchicine 0.6 MG Tab PO SCH (09:00)
--- NOTE | 2019-01-26 13:51 | HP ---
ADMISSION DATE: 01/25/2019 HISTORY OF PRESENT ILLNESS: Zac Lucas is an 83-year-old male, resides in [place], [place]. He was seen at [facility] on 01/25/2019. Diffuse abdominal pain; bloating; nausea; complicated diarrhea, no blood; respiratory symptoms; shortness of breath; and a sense of reduced well being. Seen in the emergency room, he was found to have left lower lobe pneumonia. CT abdomen revealed diverticulosis, some degenerative scarring, left lower lobe pneumonia. Hospitalization indicated. HOME MEDICATIONS: Include: 1. Advair Diskus 250/50, one puff b.i.d. 2. Coreg 25 mg 1 p.o. b.i.d., heart. 3. Pepcid 20 mg 1 p.o. daily, GERD. 4. 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 5. Doxepin 25 at bedtime, sleep enhancement. 6. Incruse 1 puff b.i.d., 6.25 mcg dose. 7. Colchicine on record, but not needed. 8. Bumex 1 mg 1/2 tab Thursday, Thursday, and Thursday. 9. Bactroban ointment p.r.n. 10.Vitamin D3, p.r.n. 11.Aspirin 81 mg daily. 12.Albuterol 2 puffs q.i.d. p.r.n. ALLERGIES: Furosemide with hives. ADDENDUM PAST MEDICAL HISTORY: Significant for previous cataract surgery. Chronic illnesses include COPD, congestive heart failure, compensated stage 3 CHD. History of lung carcinoma with surgery in 2019, prostate cancer with seed placement. No other major operative procedures, hospitalizations, unusual childhood diseases, major injuries, or fractures. SOCIAL HISTORY: , [employer] by occupation. 2 sons, 3 grandchildren. Quit smoking in 1998. No alcohol consumption. No illicit drug use. FAMILY HISTORY: Noncontributory. REVIEW OF SYSTEMS: Please see HPI, feeling otherwise well. [place] town. Bowels are fine. Bladder has been fine. Nocturia x1. No blood in stool, shortness of breath is problematic with COPD, and heart disease, no unusual skin rashes. PHYSICAL EXAMINATION: VITAL SIGNS: 36.3, 124/83, 18 respirations, 93% on 2 L. GENERAL: Elderly gentleman, cooperative conversant speech was fluent. HEENT: Funduscopic benign. Bright TMs. Clear nasal discharge. Mouth and oropharynx reveal poor dentition. Absent teeth. Tongue midline. Good gag reflex. NECK: Benign. Thyroid small. CHEST: Decreased breath sounds in left lower lobe distribution. HEART: Occasional ectopy. Soft murmur. BREASTS: Normal male breasts. ABDOMEN: Benign. No surgical scars. SKIN: Post lung cancer surgical scars, left and right low back. GENITOURINARY: Normal male genitalia. Atrophic testicles. Hernias were absent. RECTAL: Declined. EXTREMITIES: Well perfused. LABORATORY STUDIES: White count 13,900, hemoglobin 13.4. Arterial blood gases, 7.39, pCO2 42, pO2 69,. Electrolytes satisfactory though BUN 35, creatinine 2.4 and GFR of 26. Urinalysis unremarkable, 5-10 white cells. ASSESSMENT: 1. Left lower lobe pneumonia. 2. Marked comorbidities clearly defined above. PLAN: Hospitalization indicated, IV antibiotics, supplemental therapy, intravenous steroids, given Barnwell's disease, PT/RT and intervention. Short- term stay expected. /[id number] [id number] 1225 /MODL ADDENDUM: /[id number] 1207 1304 /MODL
--- NOTE | 2019-01-26 13:51 | PN ---
DATE SEEN: 01/26/2019 SUBJECTIVE: Zac Lucas is a delightful 83-year-old male from [place], [place], admitted with complicated pneumonia. Better this morning. More comfortable, in good spirits. Without physical complaints. Radiographs as described. Blood cultures negative x24 hours. PHYSICAL EXAMINATION: VITAL SIGNS: 80 kg, 79.1, 47/66, respirations 18, 92% on 1.5 L. GENERAL: Appears comfortable. Speech is fluent. HEENT: Mouth and oropharynx clear. NECK: Benign. CHEST: Decreased breath sounds, left lower lobe distribution. Coarse rhonchi throughout. HEART: Distant heart sounds. Occasional ectopy. No murmur of significance. ABDOMEN: Benign. ASSESSMENT: Left lower lobe pneumonia. PLAN: Medications on board. Timing appropriate. Short-term stay expected, conversations appropriate. /[id number] 1347 NADIA/TITO
[2019-01-26] MEDS: cefTRIAXone 1 GM Vial IV SCH (14:17)
[2019-01-26] MEDS: Azithromycin 500 MG in Sodium Chloride 0.9% 250 ML IV SCH (14:46)
[2019-01-26] MEDS: Doxepin 25 MG Cap PO SCH (20:27)
[2019-01-27] MEDS: Albuterol/Ipratropium 3.0-0.5 MG/3 ML Neb Soln NEB SCH ×4 (01:31→19:28)
[2019-01-27] MEDS: Sodium Chloride 0.9% 1,000 ML IV SCH (05:24)
[2019-01-27] MEDS: methylPREDNISolone Sodium Succinate 40 MG/1 ML SDV IVPUSH SCH ×3 (05:25→22:27)
[2019-01-27] MEDS: Carvedilol 25 MG Tab PO SCH ×2 (09:23→22:26)
--- NOTE | 2019-01-27 11:54 | PN ---
DATE SEEN: 01/27/2019 SUBJECTIVE: Zac Lucas is an 83-year-old male, [place], [place] resident, admitted for pneumonia. Return positive blood culture for Gram-positive cocci. Exact pathogen, pending. He is up a few pounds. IV fluids will be discontinued. LABORATORY STUDIES: From today; white count 13.9 to 11.1, hemoglobin 13.4 to 12.2, platelets 95,000 to 128,000. Blood gases noted. Electrolytes today revealed improvement. BUN has gone from 35 to 31. Creatinine from 2.45 to 1.6. GFR 26 to 41. OBJECTIVE: VITAL SIGNS: 163/90, 87, 82 kg, O2 saturation 93% on 1.5 L. GENERAL: Appears comfortable. Speech was fluent. Mouth and oropharynx revealed poor dentition. NECK: No JVD. CHEST: Decreased breath sounds in left lower lobe distribution. HEART: No ectopy or murmur. ABDOMEN: Benign. ASSESSMENT: Left lower lobe pneumonia with sepsis. Positive blood cultures. PLAN: Medications on board. Ceftriaxone and azithromycin. Complementary care and well being. We will await culture report, 7-day duration expectation. /[id number] [id number] 1132 /TITO
--- NOTE | 2019-01-27 13:09 | CR ---
INDICATION: Followup pneumonia. CHEST: Two PA views and a lateral view of the chest, 01/27/19, were compared with 01/25/19 and 02/23/18 with heavy markings again noted in the right mid lung field, lesser degree perihilar on the left in the mid lung field, and in both lung bases, especially on the left. There is now some blunting of the posterior sulcus on the left, in addition to an appearance of increasing infiltration in the left lower lobe area, compatible with progressive pneumonia in that area. No other change or new acute process was seen with continued question of minimal patchy pneumonia superimposed on fibrosis in the right mid lung field and inability to exclude minimal patchy pneumonia at the right lung base with the heavy markings present in that area. The heart remains normal in size and shape. The aorta is tortuous with calcification in the arch. Bony structures remain intact. Findings compatible with COPD remain present. IMPRESSION: 1. Continued pneumonia and now pleuritis at the left lung base with increased infiltrate suggested in the left lower lobe posteriorly. 2. Continued areas of heavy markings compatible with pulmonary fibrosis, making it difficult to exclude areas of minimal superimposed patchy bronchopneumonia. 3. COPD. 4. ASD aorta. MTDD
[2019-01-27] MEDS: Sodium Chloride 0.9% 10 ML Syringe FLUSH PRN ×3 (14:52→22:29)
[2019-01-27] MEDS: cefTRIAXone 1 GM Vial IV SCH (14:56)
[2019-01-27] MEDS: Azithromycin 500 MG in Sodium Chloride 0.9% 250 ML IV SCH (15:00)
[2019-01-27] MEDS: Doxepin 25 MG Cap PO SCH (22:26)
[2019-01-28] MEDS: Albuterol/Ipratropium 3.0-0.5 MG/3 ML Neb Soln NEB SCH ×4 (02:16→18:52)
[2019-01-28] MEDS: Sodium Chloride 0.9% 10 ML Syringe FLUSH PRN ×4 (06:15→22:02)
[2019-01-28] MEDS: methylPREDNISolone Sodium Succinate 40 MG/1 ML SDV IVPUSH SCH ×3 (06:15→21:42)
[2019-01-28] MEDS: Carvedilol 25 MG Tab PO SCH ×2 (08:32→21:41)
--- NOTE | 2019-01-28 10:02 | PCM.PN ---
- General Info Date of Service: 01/28/19 Subjective Update: This is an 82-year-old admitted for pneumonia. Has no complaints today except constipation. Still needing oxygen supplementation. Functional Status: Reports: Pain Controlled - Review of Systems HEENT: Reports: No Symptoms Pulmonary: Reports: Cough Cardiovascular: Reports: No Symptoms Gastrointestinal: Reports: Constipation Genitourinary: Reports: No Symptoms - Patient Data Vitals - Most Recent: Last Vital Signs Temp 97.6 F 01/28/19 08:00 Pulse 79 01/28/19 08:32 Resp 16 01/28/19 08:00 BP 138/69 01/28/19 08:32 Pulse Ox 93 L 01/28/19 08:00 Orthostatic Blood Pressure [ 91/50 Standing] Orthostatic Blood Pressure [ 93/43 Sitting] Orthostatic Blood Pressure [ 99/43 Supine] Weight - Most Recent: 83.325 kg I&O - Last 24 Hours: Intake & Output 01/27/19 01/28/19 01/28/19 22:59 06:59 14:59 Intake Total 250 200 Output Total 200 600 Balance 50 -400 Santosh Results Last 24 Hours: Microbiology 01/25/19 10:55 Aerobic Blood Culture - Preliminary Blood - Venous Gram Positive Cocci Anaerobic Blood Culture - Preliminary Gram Positive Cocci 01/25/19 11:05 Aerobic Blood Culture - Preliminary Blood - Venous - Lab Draw NO GROWTH AFTER 2 DAYS Anaerobic Blood Culture - Preliminary NO GROWTH AFTER 2 DAYS Med Orders - Current: Current Medications Albuterol/Ipratropium (Duoneb 3.0-0.5 Mg/3 Ml) 3 ml NEB Q6H [facility] Last Admin: 01/28/19 06:49 Dose: 3 ml Carvedilol (Coreg) 25 mg PO BID [facility] Last Admin: 01/28/19 08:32 Dose: 25 mg Ceftriaxone Sodium (Rocephin) 1 gm IV Q24H [facility] Last Admin: 01/27/19 14:56 Dose: 1 gm Doxepin HCl (Sinequan) 25 mg PO BEDTIME [facility] Last Admin: 01/27/19 22:26 Dose: 25 mg Azithromycin 500 mg/ Sodium (Chloride) 250 mls @ 250 mls/hr IV Q24H [facility] Last Admin: 01/27/19 15:00 Dose: 250 mls/hr Methylprednisolone Sodium Succinate (Solu-Medrol) 40 mg IVPUSH Q8H [facility] Last Admin: 01/28/19 06:15 Dose: 40 mg Polyethylene Glycol (Miralax) 17 gm PO DAILY [facility] Sodium Chloride (Saline Flush) 10 ml FLUSH ASDIRECTED PRN PRN Reason: Keep Vein Open Last Admin: 01/28/19 06:15 Dose: 10 ml Discontinued Medications Colchicine (Colcrys) 1.2 mg PO DAILY [facility] Enoxaparin Sodium (Lovenox) 30 mg SUBCUT Q24H [facility] Hydrocortisone Sodium Succinate (Solu-Cortef) 100 mg IVPUSH ONETIME ONE Stop: 01/25/19 09:34 Last Admin: 01/25/19 09:49 Dose: 100 mg Sodium Chloride (Normal Saline) 1,000 mls @ 999 mls/hr IV .BOLUS ONE Stop: 01/25/19 10:31 Last Admin: 01/25/19 09:49 Dose: 999 mls/hr Sodium Chloride (Normal Saline) 500 mls @ 999 mls/hr IV .BOLUS ONE Stop: 01/25/19 11:15 Last Admin: 01/25/19 10:47 Dose: 999 mls/hr Sodium Chloride (Normal Saline) 1,000 mls @ 150 mls/hr IV ASDIRECTED SY Last Admin: 01/27/19 05:24 Dose: 150 mls/hr Ondansetron HCl (Zofran) 4 mg IVPUSH ONETIME ONE Stop: 01/25/19 09:32 Last Admin: 01/25/19 09:49 Dose: 4 mg Sodium Chloride (Saline Flush) 10 ml FLUSH ASDIRECTED PRN PRN Reason: Keep Vein Open Last Admin: 01/25/19 09:49 Dose: 10 ml - Exam Quality Assessment: Supplemental Oxygen General: Alert HEENT: Pupils Equal Neck: Supple Lungs: Rhonchi Cardiovascular: Regular Rate - Problem List & Annotations (1) Constipation SNOMED Code(s): 16510339 Code(s): K59.00 - CONSTIPATION, UNSPECIFIED Status: Acute Current Visit: Yes (2) Pneumonia SNOMED Code(s): 772022947 Code(s): J18.9 - PNEUMONIA, UNSPECIFIED ORGANISM Status: Acute Current Visit: Yes Qualifiers: Pneumonia type: due to unspecified organism Laterality: left Lung location: lower lobe of lung Qualified Code(s): J18.1 - Lobar pneumonia, unspecified organism (3) COPD (chronic obstructive pulmonary disease) SNOMED Code(s): 26100429 Code(s): J44.9 - CHRONIC OBSTRUCTIVE PULMONARY DISEASE, UNSPECIFIED Status : Acute Current Visit: No Qualifiers: COPD type: COPD with acute exacerbation Qualified Code(s): J44.1 - Chronic obstructive pulmonary disease with (acute) exacerbation (4) H/O: lung cancer SNOMED Code(s): 264107348, 030238296 Code(s): Z85.118 - PERSONAL HISTORY OF MALIGNANT NEOPLASM OF BRONCHUS AND LUNG Status: Acute Current Visit: No (5) HTN (hypertension) SNOMED Code(s): 43542660 Code(s): I10 - ESSENTIAL (PRIMARY) HYPERTENSION Status: Chronic Current Visit: No Qualifiers: Hypertension type: essential hypertension Qualified Code(s): I10 - Essential (primary) hypertension (6) Bacteremia SNOMED Code(s): 1638569 Code(s): R78.81 - BACTEREMIA Status: Acute Current Visit: Yes - Problem List Review Problem List Initiated/Reviewed/Updated: Yes - My Orders Last 24 Hours: My Active Orders 01/28/19 10:00 Polyethylene Glycol 3350 [MiraLAX] 17 gm PO DAILY - Plan Plan:: Blood cultures growing gram-positive cocci. Chest x-ray from yesterday showed continued pneumonia. I recommend continuation of the IV antibiotics, as we wait for the results. His I will also give him MiraLAX to help with constipation
[2019-01-28] MEDS: Polyethylene Glycol 3350 Powder 17 GM Packet PO SCH (10:35)
[2019-01-28] MEDS: Enoxaparin 30 MG/0.3 ML Syringe SUBCUT SCH (12:31)
[2019-01-28] MEDS: cefTRIAXone 1 GM Vial IV SCH (14:21)
[2019-01-28] MEDS: Azithromycin 500 MG in Sodium Chloride 0.9% 250 ML IV SCH (14:34)
[2019-01-28] MEDS: Doxepin 25 MG Cap PO SCH (21:41)
[2019-01-29] MEDS: Albuterol/Ipratropium 3.0-0.5 MG/3 ML Neb Soln NEB SCH ×5 (05:33→21:07)
[2019-01-29] MEDS: methylPREDNISolone Sodium Succinate 40 MG/1 ML SDV IVPUSH SCH (06:35)
[2019-01-29] MEDS: Sodium Chloride 0.9% 10 ML Syringe FLUSH PRN (06:36)
--- NOTE | 2019-01-29 08:57 | PCM.PN ---
- General Info Date of Service: 01/29/19 Subjective Update: This is an 82-year-old admitted for pneumonia. Has no complaints today. Still needing oxygen supplementation. Functional Status: Reports: Pain Controlled - Review of Systems General: Reports: No Symptoms HEENT: Reports: No Symptoms Pulmonary: Reports: Cough, Sputum Cardiovascular: Reports: No Symptoms Gastrointestinal: Reports: No Symptoms Genitourinary: Reports: No Symptoms - Patient Data Vitals - Most Recent: Last Vital Signs Temp 97.9 F 01/29/19 04:00 Pulse 78 01/29/19 04:00 Resp 20 01/29/19 04:00 BP 163/87 H 01/29/19 04:00 Pulse Ox 95 01/29/19 07:00 Orthostatic Blood Pressure [ 91/50 Standing] Orthostatic Blood Pressure [ 93/43 Sitting] Orthostatic Blood Pressure [ 99/43 Supine] Weight - Most Recent: 84.822 kg I&O - Last 24 Hours: Intake & Output 01/28/19 01/29/19 01/29/19 22:59 06:59 14:59 Output Total 1000 500 Balance -1000 -500 Santosh Results Last 24 Hours: Microbiology 01/25/19 10:55 Aerobic Blood Culture - Final Blood - Venous Staph Capitis Ss Ureolyticus Anaerobic Blood Culture - Preliminary Gram Positive Cocci 01/25/19 11:05 Aerobic Blood Culture - Preliminary Blood - Venous - Lab Draw NO GROWTH AFTER 3 DAYS Anaerobic Blood Culture - Preliminary NO GROWTH AFTER 3 DAYS Med Orders - Current: Current Medications Albuterol/Ipratropium (Duoneb 3.0-0.5 Mg/3 Ml) 3 ml NEB QIDRT [facility] Last Admin: 01/29/19 06:35 Dose: 3 ml Bumetanide (Bumex) 1 mg PO BIDDIURETIC [facility] Carvedilol (Coreg) 25 mg PO BID [facility] Last Admin: 01/28/19 21:41 Dose: 25 mg Doxepin HCl (Sinequan) 25 mg PO BEDTIME [facility] Last Admin: 01/28/19 21:41 Dose: 25 mg Enoxaparin Sodium (Lovenox) 30 mg SUBCUT Q24H [facility] Last Admin: 01/28/19 12:31 Dose: 30 mg Levofloxacin (Levaquin) 500 mg PO Q24H [facility] Polyethylene Glycol (Miralax) 17 gm PO DAILY [facility] Last Admin: 01/28/19 10:35 Dose: 17 gm Prednisone (Prednisone) 20 mg PO BID [facility] Sodium Chloride (Saline Flush) 10 ml FLUSH ASDIRECTED PRN PRN Reason: Keep Vein Open Last Admin: 01/29/19 06:36 Dose: 10 ml Discontinued Medications Albuterol/Ipratropium (Duoneb 3.0-0.5 Mg/3 Ml) 3 ml NEB Q6H [facility] Last Admin: 01/29/19 05:33 Dose: Not Given Ceftriaxone Sodium (Rocephin) 1 gm IV Q24H [facility] Last Admin: 01/28/19 14:21 Dose: 1 gm Colchicine (Colcrys) 1.2 mg PO DAILY [facility] Enoxaparin Sodium (Lovenox) 30 mg SUBCUT Q24H [facility] Hydrocortisone Sodium Succinate (Solu-Cortef) 100 mg IVPUSH ONETIME ONE Stop: 01/25/19 09:34 Last Admin: 01/25/19 09:49 Dose: 100 mg Sodium Chloride (Normal Saline) 1,000 mls @ 999 mls/hr IV .BOLUS ONE Stop: 01/25/19 10:31 Last Admin: 01/25/19 09:49 Dose: 999 mls/hr Sodium Chloride (Normal Saline) 500 mls @ 999 mls/hr IV .BOLUS ONE Stop: 01/25/19 11:15 Last Admin: 01/25/19 10:47 Dose: 999 mls/hr Sodium Chloride (Normal Saline) 1,000 mls @ 150 mls/hr IV ASDIRECTED [facility] Last Admin: 01/27/19 05:24 Dose: 150 mls/hr Azithromycin 500 mg/ Sodium (Chloride) 250 mls @ 250 mls/hr IV Q24H [facility] Last Admin: 01/28/19 14:34 Dose: 250 mls/hr Methylprednisolone Sodium Succinate (Solu-Medrol) 40 mg IVPUSH Q8H [facility] Last Admin: 01/29/19 06:35 Dose: 40 mg Ondansetron HCl (Zofran) 4 mg IVPUSH ONETIME ONE Stop: 01/25/19 09:32 Last Admin: 01/25/19 09:49 Dose: 4 mg Sodium Chloride (Saline Flush) 10 ml FLUSH ASDIRECTED PRN PRN Reason: Keep Vein Open Last Admin: 01/25/19 09:49 Dose: 10 ml - Exam Quality Assessment: Supplemental Oxygen General: Alert HEENT: Pupils Equal Lungs: Crackles Cardiovascular: Regular Rate - Problem List & Annotations (1) Constipation SNOMED Code(s): 17851212 Code(s): K59.00 - CONSTIPATION, UNSPECIFIED Status: Acute Current Visit: Yes Qualifiers: Constipation type: unspecified constipation type Qualified Code(s): K59.00 - Constipation, unspecified (2) Pneumonia SNOMED Code(s): 729261237 Code(s): J18.9 - PNEUMONIA, UNSPECIFIED ORGANISM Status: Acute Current Visit: Yes Qualifiers: Pneumonia type: due to unspecified organism Laterality: left Lung location: lower lobe of lung Qualified Code(s): J18.1 - Lobar pneumonia, unspecified organism (3) COPD (chronic obstructive pulmonary disease) SNOMED Code(s): 71874176 Code(s): J44.9 - CHRONIC OBSTRUCTIVE PULMONARY DISEASE, UNSPECIFIED Status : Acute Current Visit: No Qualifiers: COPD type: COPD with acute exacerbation Qualified Code(s): J44.1 - Chronic obstructive pulmonary disease with (acute) exacerbation (4) H/O: lung cancer SNOMED Code(s): 296117442, 608349732 Code(s): Z85.118 - PERSONAL HISTORY OF MALIGNANT NEOPLASM OF BRONCHUS AND LUNG Status: Acute Current Visit: No (5) HTN (hypertension) SNOMED Code(s): 76219640 Code(s): I10 - ESSENTIAL (PRIMARY) HYPERTENSION Status: Chronic Current Visit: No Qualifiers: Hypertension type: essential hypertension Qualified Code(s): I10 - Essential (primary) hypertension (6) Bacteremia SNOMED Code(s): 7718427 Code(s): R78.81 - BACTEREMIA Status: Acute Current Visit: Yes - Problem List Review Problem List Initiated/Reviewed/Updated: Yes - My Orders Last 24 Hours: My Active Orders 01/28/19 10:00 Polyethylene Glycol 3350 [MiraLAX] 17 gm PO DAILY 01/28/19 12:00 Enoxaparin [Lovenox] 30 mg SUBCUT Q24H 01/29/19 07:00 Albuterol/Ipratropium [DuoNeb 3.0-0.5 MG/3 ML] 3 ml NEB QIDRT 01/29/19 09:00 levoFLOXacin [Levaquin] 500 mg PO Q24H predniSONE 20 mg PO BID 01/29/19 14:00 Bumetanide [Bumex] 1 mg PO BIDDIURETIC - Plan Plan:: Blood cultures growing gram-positive cocci. Susceptibilities recorded.Chest x- ray from yesterday showed continued pneumonia. I recommend switching to oral meds today,for DC tomorrow. Weal off O2. Trial of Bumex for fluid overload
[2019-01-29] MEDS: Carvedilol 25 MG Tab PO SCH ×2 (09:42→21:06)
[2019-01-29] MEDS: Levofloxacin 500 MG Tab PO SCH (10:07)
[2019-01-29] MEDS: predniSONE 20 MG Tab PO SCH ×2 (10:07→21:27)
[2019-01-29] MEDS: Polyethylene Glycol 3350 Powder 17 GM Packet PO SCH (10:43)
[2019-01-29] MEDS: Enoxaparin 30 MG/0.3 ML Syringe SUBCUT SCH (12:28)
[2019-01-29] MEDS: Bumetanide 1 MG Tab PO SCH (14:20)
[2019-01-29] MEDS: Doxepin 25 MG Cap PO SCH (21:07)
[2019-01-30] MEDS: Albuterol/Ipratropium 3.0-0.5 MG/3 ML Neb Soln NEB SCH (06:13)
--- NOTE | 2019-01-30 08:15 | PCM.PN ---
- General Info Date of Service: 01/30/19 Subjective Update: This is an 82-year-old admitted for pneumonia. Has no complaints today. Still needing oxygen supplementation. Functional Status: Reports: Pain Controlled, Tolerating Diet - Review of Systems General: Reports: No Symptoms Pulmonary: Reports: No Symptoms Cardiovascular: Reports: No Symptoms Gastrointestinal: Reports: No Symptoms - Patient Data Vitals - Most Recent: Last Vital Signs Temp 97.2 F 01/30/19 00:00 Pulse 80 01/30/19 06:25 Resp 20 01/30/19 00:00 BP 158/88 H 01/30/19 00:00 Pulse Ox 92 L 01/30/19 00:00 Orthostatic Blood Pressure [ 91/50 Standing] Orthostatic Blood Pressure [ 93/43 Sitting] Orthostatic Blood Pressure [ 99/43 Supine] Weight - Most Recent: 81.193 kg I&O - Last 24 Hours: Intake & Output 01/29/19 01/30/19 01/30/19 22:59 06:59 14:59 Output Total 900 550 Balance -900 -550 Santosh Results Last 24 Hours: Microbiology 01/25/19 10:55 Aerobic Blood Culture - Final Blood - Venous Staph Capitis Ss Ureolyticus Anaerobic Blood Culture - Final Staph Capitis Ss Ureolyticus 01/25/19 11:05 Aerobic Blood Culture - Preliminary Blood - Venous - Lab Draw NO GROWTH AFTER 4 DAYS Anaerobic Blood Culture - Preliminary NO GROWTH AFTER 4 DAYS Med Orders - Current: Current Medications Albuterol/Ipratropium (Duoneb 3.0-0.5 Mg/3 Ml) 3 ml NEB QIDRT [facility] Last Admin: 01/30/19 06:13 Dose: 3 ml Bumetanide (Bumex) 1 mg PO BIDDIURETIC [facility] Last Admin: 01/29/19 14:20 Dose: 1 mg Carvedilol (Coreg) 25 mg PO BID [facility] Last Admin: 01/29/19 21:06 Dose: 25 mg Doxepin HCl (Sinequan) 25 mg PO BEDTIME [facility] Last Admin: 01/29/19 21:07 Dose: 25 mg Enoxaparin Sodium (Lovenox) 30 mg SUBCUT Q24H [facility] Last Admin: 01/29/19 12:28 Dose: 30 mg Levofloxacin (Levaquin) 500 mg PO Q24H [facility] Last Admin: 01/29/19 10:07 Dose: 500 mg Polyethylene Glycol (Miralax) 17 gm PO DAILY [facility] Last Admin: 01/29/19 10:43 Dose: Not Given Prednisone (Prednisone) 20 mg PO BID [facility] Last Admin: 01/29/19 21:27 Dose: 20 mg Sodium Chloride (Saline Flush) 10 ml FLUSH ASDIRECTED PRN PRN Reason: Keep Vein Open Last Admin: 01/29/19 06:36 Dose: 10 ml Discontinued Medications Albuterol/Ipratropium (Duoneb 3.0-0.5 Mg/3 Ml) 3 ml NEB Q6H [facility] Last Admin: 01/29/19 05:33 Dose: Not Given Ceftriaxone Sodium (Rocephin) 1 gm IV Q24H [facility] Last Admin: 01/28/19 14:21 Dose: 1 gm Colchicine (Colcrys) 1.2 mg PO DAILY [facility] Enoxaparin Sodium (Lovenox) 30 mg SUBCUT Q24H [facility] Hydrocortisone Sodium Succinate (Solu-Cortef) 100 mg IVPUSH ONETIME ONE Stop: 01/25/19 09:34 Last Admin: 01/25/19 09:49 Dose: 100 mg Sodium Chloride (Normal Saline) 1,000 mls @ 999 mls/hr IV .BOLUS ONE Stop: 01/25/19 10:31 Last Admin: 01/25/19 09:49 Dose: 999 mls/hr Sodium Chloride (Normal Saline) 500 mls @ 999 mls/hr IV .BOLUS ONE Stop: 01/25/19 11:15 Last Admin: 01/25/19 10:47 Dose: 999 mls/hr Sodium Chloride (Normal Saline) 1,000 mls @ 150 mls/hr IV ASDIRECTED [facility] Last Admin: 01/27/19 05:24 Dose: 150 mls/hr Azithromycin 500 mg/ Sodium (Chloride) 250 mls @ 250 mls/hr IV Q24H [facility] Last Admin: 01/28/19 14:34 Dose: 250 mls/hr Methylprednisolone Sodium Succinate (Solu-Medrol) 40 mg IVPUSH Q8H [facility] Last Admin: 01/29/19 06:35 Dose: 40 mg Ondansetron HCl (Zofran) 4 mg IVPUSH ONETIME ONE Stop: 01/25/19 09:32 Last Admin: 01/25/19 09:49 Dose: 4 mg Sodium Chloride (Saline Flush) 10 ml FLUSH ASDIRECTED PRN PRN Reason: Keep Vein Open Last Admin: 01/25/19 09:49 Dose: 10 ml - Exam Quality Assessment: Supplemental Oxygen General: Alert HEENT: Pupils Equal Neck: Supple Lungs: Clear to Auscultation Cardiovascular: Regular Rate - Problem List & Annotations (1) Constipation SNOMED Code(s): 62101903 Code(s): K59.00 - CONSTIPATION, UNSPECIFIED Status: Acute Current Visit: Yes Qualifiers: Constipation type: unspecified constipation type Qualified Code(s): K59.00 - Constipation, unspecified (2) Pneumonia SNOMED Code(s): 698196065 Code(s): J18.9 - PNEUMONIA, UNSPECIFIED ORGANISM Status: Acute Current Visit: Yes Qualifiers: Pneumonia type: due to unspecified organism Laterality: left Lung location: lower lobe of lung Qualified Code(s): J18.1 - Lobar pneumonia, unspecified organism (3) COPD (chronic obstructive pulmonary disease) SNOMED Code(s): 99839709 Code(s): J44.9 - CHRONIC OBSTRUCTIVE PULMONARY DISEASE, UNSPECIFIED Status : Acute Current Visit: No Qualifiers: COPD type: COPD with acute exacerbation Qualified Code(s): J44.1 - Chronic obstructive pulmonary disease with (acute) exacerbation (4) H/O: lung cancer SNOMED Code(s): 382382199, 520183560 Code(s): Z85.118 - PERSONAL HISTORY OF MALIGNANT NEOPLASM OF BRONCHUS AND LUNG Status: Acute Current Visit: No (5) HTN (hypertension) SNOMED Code(s): 29367948 Code(s): I10 - ESSENTIAL (PRIMARY) HYPERTENSION Status: Chronic Current Visit: No Qualifiers: Hypertension type: essential hypertension Qualified Code(s): I10 - Essential (primary) hypertension (6) Bacteremia SNOMED Code(s): 3860537 Code(s): R78.81 - BACTEREMIA Status: Acute Current Visit: Yes - Problem List Review Problem List Initiated/Reviewed/Updated: Yes - My Orders Last 24 Hours: My Active Orders 01/29/19 09:00 levoFLOXacin [Levaquin] 500 mg PO Q24H predniSONE 20 mg PO BID 01/29/19 14:00 Bumetanide [Bumex] 1 mg PO BIDDIURETIC 01/30/19 08:14 Ready for Discharge [RC] PER UNIT ROUTINE - Plan Plan:: DC home today on oral Levaquin.
[2019-01-30] MEDS: Bumetanide 1 MG Tab PO SCH (08:51)
[2019-01-30] MEDS: Carvedilol 25 MG Tab PO SCH (08:52)
[2019-01-30 08:53] VITALS: BP 155/88
[2019-01-30] MEDS: Levofloxacin 500 MG Tab PO SCH (08:53)
[2019-01-30] MEDS: predniSONE 20 MG Tab PO SCH (08:53)
--- NOTE | 2019-01-30 11:42 | DISCH ---
DISCHARGE DATE: 01/30/2019 REASON FOR VISIT: 1. COPD exacerbation. 2. Community-acquired pneumonia. 3. History of CHF. 4. History of lung cancer. DISCHARGE DIAGNOSES: 1. Chronic obstructive pulmonary disease exacerbation. 2. Community-acquired pneumonia. 3. History of congestive heart failure. 4. History of lung cancer. BRIEF HISTORY: This is an 83-year-old male, who came in on the with shortness of breath and cough and was diagnosed with pneumonia and was placed on IV antibiotics, admitted. His blood cultures grew Staphylococcus, which was highly sensitive to most of the oral medications. He was discharged today, on the , on oral Levaquin and prednisone. He will also go home on home O2 that he can use continuously as needed. He is advised to follow up on Thursday with myself or anyone at the office. More than 35 minutes was spent in discharge of this patient. /[id number] LESLIE/TITO
== END 2019-01-30 12:30 | disposition home or self-care (01) | DRG 194 ==
LOC: FB.ED 08:49 → FB.MS 12:01
PROVIDERS: ADMIT Emergency Medicine; ATTEND Family Medicine
DX: J18.1 Lobar pneumonia, unspecified organism (principal); J44.0 Chronic obstructive pulmonary disease with (acute) lower respiratory infection; J44.1 Chronic obstructive pulmonary disease with (acute) exacerbation; R78.81 Bacteremia; I13.0 Hypertensive heart and chronic kidney disease with heart failure and stage 1 through stage 4 chronic kidney disease, or unspecified chronic kidney disease; N17.9 Acute kidney failure, unspecified; E27.1 Primary adrenocortical insufficiency; B95.7 Other staphylococcus as the cause of diseases classified elsewhere; I95.9 Hypotension, unspecified; R09.02 Hypoxemia; Z87.891 Personal history of nicotine dependence; I50.9 Heart failure, unspecified; R10.9 Unspecified abdominal pain; R11.0 Nausea; R06.02 Shortness of breath; N18.3 Chronic kidney disease, stage 3 (moderate); K57.30 Diverticulosis of large intestine without perforation or abscess without bleeding; K59.00 Constipation, unspecified; Z87.01 Personal history of pneumonia (recurrent); Z85.118 Personal history of other malignant neoplasm of bronchus and lung; Z85.820 Personal history of malignant melanoma of skin; Z85.828 Personal history of other malignant neoplasm of skin; Z85.72 Personal history of non-Hodgkin lymphomas; Z92.3 Personal history of irradiation; Z85.46 Personal history of malignant neoplasm of prostate; Z79.82 Long term (current) use of aspirin; Z88.8 Allergy status to other drugs, medicaments and biological substances
CPT/HCPCS: 36415; 71046; 74176; 80053; 81001; 82150; 83605; 85025; 85610; 87040 ×2; 87077; 87186; 96361; 96374; 96375; 99285; J1720; J2405; J7030 ×2; J7040; 36600; 80048; 82803; 83735; 94150; 94640; A9270-GY; J0456; J0696; J1650; J2920; J7050; J7620-GY

== ENCOUNTER → 2019-08-18 | Outpatient (CLI) | payer MEDICARE, OTHER | LOC: FB.CLBR 14:24 | PROVIDERS: ATTEND Nurse Practitioner Family | DX: R53.83 Other fatigue (principal); R07.89 Other chest pain; R06.02 Shortness of breath; J98.11 Atelectasis; J98.4 Other disorders of lung | CPT/HCPCS: 36415; 71046; 80053; 83880; 84484; 85025; 93005; 93010; 99214 ==

== ENCOUNTER 2019-08-22 10:55 | Inpatient (IN) | payer MEDICARE, OTHER ==
[2019-08-22] MEDS: methylPREDNISolone Sodium Succinate 125 MG/2 ML SDV IVPUSH SCH ×2 (13:48→20:26)
[2019-08-22] MEDS: Sodium Chloride 0.9% 1,000 ML IV SCH (13:50)
--- NOTE | 2019-08-22 15:58 | CR ---
INDICATION: Short of breath. CHEST: Two PA views and a lateral view of the chest, 08/22/19, were compared with 08/18/19, again revealing the heart to be normal in size and shape. The aorta is tortuous with calcification in the arch. Diminished bone density is suggested, compatible with osteoporosis, but should be correlated clinically. Minimal loss of vertebral body volume is noted at what appears to be T11, unchanged from the previous study. The diaphragm leaves are slightly flattened with prominent AP diameter and hyperaeration, suggesting COPD - correlate clinically. Markings appear similar to the previous examination without a definite active infiltrate or effusion. IMPRESSION: 1. No definite acute process. 2. COPD. 3. 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 4. Mild pulmonary fibrosis. MTDD
[2019-08-22] MEDS: Albuterol/Ipratropium 3.0-0.5 MG/3 ML Neb Soln NEB SCH ×2 (16:05→20:26)
[2019-08-22] MEDS: Sodium Chloride 0.9% 10 ML Syringe FLUSH PRN (20:26)
[2019-08-23] MEDS: Sodium Chloride 0.9% 1,000 ML IV SCH (05:06)
[2019-08-23] MEDS: Sodium Chloride 0.9% 10 ML Syringe FLUSH PRN ×3 (05:10→20:06)
[2019-08-23] MEDS: methylPREDNISolone Sodium Succinate 125 MG/2 ML SDV IVPUSH SCH ×3 (05:10→20:06)
[2019-08-23] MEDS: Albuterol/Ipratropium 3.0-0.5 MG/3 ML Neb Soln NEB SCH ×4 (06:17→20:07)
--- NOTE | 2019-08-23 08:54 | PCM.HP.2 ---
H&P History of Present Illness - General Date of Service: 08/23/19 Admit Problem/Dx: Admission Diagnosis/Problem Admission Diagnosis/Problem CHF, Congestive heart failure Source of Information: Patient History Limitations: Reports: No Limitations - History of Present Illness Initial Comments - Free Text/Narative: Zac is an 83 -year-old male admitted for general weakness, increasing shortness of breath. He was seen in the walk-in clinic on Thursday similar symptoms and the dose of Bumex Bumex was increased with a presumptive diagnosis of CHF exacerbation. He states that he has not improved and in fact has lost 5 pounds and feels weaker. He has a history of CKD,COPD, oxygen dependent at night. 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 He denies chest pain fever or chills he denies any nausea vomiting or diarrhea. - Related Data Allergies/Adverse Reactions: Allergies Allergy/AdvReac Type Severity Reaction Status Date / Time furosemide [From Lasix] Allergy Cannot Verified 08/22/19 12:20 Remember Home Medications: Home Meds Albuterol [Proventil HFA] 2 puff INH Q4H PRN 12/01/14 [History] Aspirin [Children's Aspirin] 81 mg PO DAILY 12/01/14 [History] Bumetanide [Bumex] 0.5 mg PO MOWEFR 12/01/14 [History] Doxepin [SINEquan] 25 mg PO BEDTIME 12/01/14 [History] Hydrocortisone [Cortef] 10 mg PO DAILY 12/01/14 [History] Fluticasone/Salmeterol [Advair 250-50] 1 puff IH BID 02/23/18 [History] Umeclidinium [place] [Incruse Ellipta*] 1 puff IH DAILY 02/23/18 [History] Famotidine 20 mg PO DAILY 01/25/19 [History] carvediloL [Carvedilol] 25 mg PO BIDMEALS 01/25/19 [History] Cholecalciferol (Vitamin D3) [Vitamin D3] 2,000 unit PO DAILY 01/28/19 [History] Magnesium 250 mg PO DAILY 01/28/19 [History] Multivit-Min/FA/Lycopen/Lutein [Centrum Silver Tablet] 1 each PO DAILY 01/28/19 [History] Tums 750mg 1 tab PO DAILY 01/28/19 [History] Past Medical History HEENT History: Reports: Cataract, Impaired Vision Cardiovascular History: Reports: Hypertension Respiratory History: Reports: COPD, Pneumonia, Recurrent, SOB Other Respiratory History: hx of lung ca with "tumors removed twice" one from each lung Gastrointestinal History: Reports: GERD Genitourinary History: Reports: Prostate Disorder Musculoskeletal History: Reports: Arthritis, Back Pain, Chronic, Gout, Neck Pain , Chronic 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 - Recreational Drug Use Recreational Drug Use: No - Living Situation & Occupation Occupation: Retired H&P Review of Systems - Review of Systems: Review Of Systems: Comprehensive ROS is negative, except as noted in HPI. Exam - Exam Exam: See Below - Vital Signs Vital Signs: Last Vital Signs Temp 97.0 F 08/23/19 07:30 Pulse 65 08/23/19 07:30 Resp 18 08/23/19 07:30 BP 127/68 08/23/19 07:30 Pulse Ox 93 L 08/23/19 07:30 Weight: 72.711 kg - Exam Quality Assessment: Supplemental Oxygen General: Alert, Oriented, 4 HEENT: PERRLA, Hearing Intact, Mucosa Moist & Gay, Nares Patent, Normal Nasal Septum, Posterior Pharynx Clear, Conjunctiva Clear, EOMI, EACs Clear, TMs Clear Neck: Supple, Trachea Midline, 2 Lungs: Clear to Auscultation, Normal Respiratory Effort Cardiovascular: Regular Rate, Regular Rhythm GI/Abdominal Exam: Normal Bowel Sounds, Soft, Non-Tender, No Organomegaly, No Distention, No Abnormal Bruit, No Mass, Pelvis Stable (Male) Exam: Deferred Rectal (Males) Exam: Deferred Back Exam: Normal Inspection, Full Range of Motion, NT Extremities: Normal Inspection, Normal Range of Motion, Non-Tender, No Pedal Edema, Normal Capillary Refill Skin: Warm, Dry, Intact Neurological: Cranial Nerves Intact, Reflexes Equal Bilateral Neuro Extensive - Mental Status: Alert, Oriented x3, Normal Mood/Affect, Normal Cognition Neuro Extensive - Motor, Sensory, Reflexes: CN II-XII Intact, Normal Gait, Normal Reflexes Psychiatric: Alert, Normal Affect, Normal Mood - Patient Data Lab Results Last 24 hrs: Laboratory Results - last 24 hr 08/22/19 08/22/19 08/22/19 Range/Units 11:50 11:50 11:50 WBC 8.0 (4.5-12.0) X10-3/uL RBC 4.57 (4.30-5.75) x10(6)uL Hgb 14.2 (13.5-17.8) g/dL Hct 41.9 (30.0-51.3) % MCV 91.7 (80-96) fL MCH 31.1 (27.7-33.6) pg MCHC 33.9 (32.2-35.4) g/dL RDW 12.6 (11.5-15.5) % Plt Count 194 (125-369) X10(3)uL MPV 9.0 (7.4-10.4) fL Neut % (Auto) 76.5 (46-82) % Lymph % (Auto) 9.4 L (13-37) % [place] % (Auto) 9.2 (4-12) % Eos % (Auto) 3 (1.0-5.0) % Baso % (Auto) 2 (0-2) % Neut # (Auto) 6.1 (1.6-8.3) # Lymph # (Auto) 0.8 (0.6-5.0) # [place] # (Auto) 0.7 (0.0-1.3) # Eos # (Auto) 0.2 (0.0-0.8) # Baso # (Auto) 0.2 (0.0-0.2) # Add Manual Diff Neutrophils % (Manual) (46-82) % Lymphocytes % (Manual) (13-37) % Monocytes % (Manual) (4-12) % Sodium 136 (135-145) mmol/L Potassium 4.5 (3.5-5.3) mmol/L Chloride 96 L D (100-110) mmol/L Carbon Dioxide 32 (21-32) mmol/L BUN 41 H D (7-18) mg/dL Creatinine 2.7 H* (0.70-1.30) mg/dL Est Cr Clr Drug Dosing 21.32 mL/min Estimated GFR (MDRD) 23 L (>60) BUN/Creatinine Ratio 15.2 (9-20) Glucose 123 H (80-116) mg/dL Calcium 10.6 H (8.6-10.2) mg/dL Troponin I < 0.017 L (<0.017-0.056) ng/mL NT-Pro-B Natriuret Pep (<=450) pg/mL 08/22/19 08/23/19 08/23/19 Range/Units 11:50 06:15 06:15 WBC 8.7 (4.5-12.0) X10-3/uL RBC 4.12 L (4.30-5.75) x10(6)uL Hgb 12.9 L (13.5-17.8) g/dL Hct 38.6 (30.0-51.3) % MCV 93.5 (80-96) fL MCH 31.2 (27.7-33.6) pg MCHC 33.4 (32.2-35.4) g/dL RDW 12.7 (11.5-15.5) % Plt Count 181 (125-369) X10(3)uL MPV 9.5 (7.4-10.4) fL Neut % (Auto) (46-82) % Lymph % (Auto) (13-37) % [place] % (Auto) (4-12) % Eos % (Auto) (1.0-5.0) % Baso % (Auto) (0-2) % Neut # (Auto) (1.6-8.3) # Lymph # (Auto) (0.6-5.0) # [place] # (Auto) (0.0-1.3) # Eos # (Auto) (0.0-0.8) # Baso # (Auto) (0.0-0.2) # Add Manual Diff Yes Neutrophils % (Manual) 93 H (46-82) % Lymphocytes % (Manual) 5 L (13-37) % Monocytes % (Manual) 2 L (4-12) % Sodium 138 (135-145) mmol/L Potassium 4.4 (3.5-5.3) mmol/L Chloride 102 D (100-110) mmol/L Carbon Dioxide 27 (21-32) mmol/L BUN 46 H (7-18) mg/dL Creatinine 2.2 H* (0.70-1.30) mg/dL Est Cr Clr Drug Dosing 26.16 mL/min Estimated GFR (MDRD) 29 L (>60) BUN/Creatinine Ratio 20.9 H (9-20) Glucose 167 H (80-116) mg/dL Calcium 9.3 (8.6-10.2) mg/dL Troponin I (<0.017-0.056) ng/mL NT-Pro-B Natriuret Pep 778 H (<=450) pg/mL 08/23/19 Range/Units 06:15 WBC (4.5-12.0) X10-3/uL RBC (4.30-5.75) x10(6)uL Hgb (13.5-17.8) g/dL Hct (30.0-51.3) % MCV (80-96) fL MCH (27.7-33.6) pg MCHC (32.2-35.4) g/dL RDW (11.5-15.5) % Plt Count (125-369) X10(3)uL MPV (7.4-10.4) fL Neut % (Auto) (46-82) % Lymph % (Auto) (13-37) % [place] % (Auto) (4-12) % Eos % (Auto) (1.0-5.0) % Baso % (Auto) (0-2) % Neut # (Auto) (1.6-8.3) # Lymph # (Auto) (0.6-5.0) # [place] # (Auto) (0.0-1.3) # Eos # (Auto) (0.0-0.8) # Baso # (Auto) (0.0-0.2) # Add Manual Diff Neutrophils % (Manual) (46-82) % Lymphocytes % (Manual) (13-37) % Monocytes % (Manual) (4-12) % Sodium (135-145) mmol/L Potassium (3.5-5.3) mmol/L Chloride (100-110) mmol/L Carbon Dioxide (21-32) mmol/L BUN (7-18) mg/dL Creatinine (0.70-1.30) mg/dL Est Cr Clr Drug Dosing mL/min Estimated GFR (MDRD) (>60) BUN/Creatinine Ratio (9-20) Glucose (80-116) mg/dL Calcium (8.6-10.2) mg/dL Troponin I (<0.017-0.056) ng/mL NT-Pro-B Natriuret Pep 1188 H* (<=450) pg/mL Result Diagrams: 08/23/19 06:15 08/23/19 06:15 EKG INTERPRETATION Rhythm: NSR - Problem List (1) COPD (chronic obstructive pulmonary disease) SNOMED Code(s): 25490124 ICD Code: J44.9 - CHRONIC OBSTRUCTIVE PULMONARY DISEASE, UNSPECIFIED Status : Acute Current Visit: No Qualifiers: COPD type: emphysema (2) CKD (chronic kidney disease) SNOMED Code(s): 974203125 ICD Code: N18.9 - CHRONIC KIDNEY DISEASE, UNSPECIFIED Status: Acute Current Visit: Yes Qualifiers: Chronic kidney disease stage: stage 1 Qualified Code(s): N18.1 - Chronic kidney disease, stage 1 (3) CHF (congestive heart failure), NYHA class I SNOMED Code(s): 34167884, 128443149 ICD Code: I50.9 - HEART FAILURE, UNSPECIFIED Status: Acute Current Visit : No Qualifiers: Congestive heart failure type: unspecified Qualified Code(s): I50.9 - Heart failure, unspecified (4) H/O: lung cancer SNOMED Code(s): 287019070, 114084577 ICD Code: Z85.118 - PERSONAL HISTORY OF MALIGNANT NEOPLASM OF BRONCHUS AND LUNG Status: Chronic Current Visit: No (5) HTN (hypertension) SNOMED Code(s): 49565333 ICD Code: I10 - ESSENTIAL (PRIMARY) HYPERTENSION Status: Chronic Current Visit: No Qualifiers: Hypertension type: essential hypertension Problem List Initiated/Reviewed/Updated: Yes Orders Last 24hrs: Active Orders 24 hr Category Date Time Status Patient Status [ADT] Routine ADT 08/22/19 11:32 Active Height and Weight [RC] DAILY Care 08/22/19 11:31 Active Intake and Output [RC] 06,14,22 Care 08/22/19 11:32 Active Oxygen Therapy [RC] PRN Care 08/22/19 11:32 Active RT Aerosol Therapy [RC] ASDIRECTED Care 08/22/19 11:34 Active Up With Assistance [RC] ASDIRECTED Care 08/22/19 11:31 Active VTE/DVT Education [RC] DAILY Care 08/22/19 11:32 Active Vital Signs [RC] Q4H Care 08/22/19 11:32 Active OT Evaluation and Treatment [CONS] Routine Cons 08/22/19 11:31 Active PT Evaluation and Treatment [CONS] Routine Cons 08/22/19 11:31 Active Echo Comp wo Cont [US] Urgent Exams 08/23/19 08:46 Ordered BASIC METABOLIC PANEL,BMP [CHEM] AM Lab 08/24/19 05:11 Ordered PRO B-TYPE NATRIUR PEPT,BNPPRO [CHEM] DAILY Lab 08/24/19 11:45 Ordered Albuterol/Ipratropium [DuoNeb 3.0-0.5 MG/3 ML] Med 08/22/19 16:00 Active 3 ml NEB QIDRT Aspirin Med 08/23/19 09:00 Ordered 81 mg PO DAILY Bumetanide [Bumex] Med 08/24/19 08:47 Ordered 0.5 mg PO MOWEFR Cholecalciferol (Vitamin D3) [Vitamin D3] Med 08/23/19 09:00 Ordered 2,000 unit PO DAILY Doxepin [SINEquan] Med 08/23/19 21:00 Ordered 25 mg PO BEDTIME Famotidine [Pepcid] Med 08/23/19 09:00 Ordered 20 mg PO DAILY Fluticasone/Salmeterol [Advair 250-50] Med 08/23/19 09:00 Ordered 1 puff IH BID Hydrocortisone [Cortef] Med 08/23/19 09:00 Ordered 10 mg PO DAILY Magnesium [Magnesium] Med 08/23/19 09:00 Ordered 250 mg PO DAILY Multivit-Min/FA/Lycopen/Lutein [Centrum Silver Tablet] Med 08/23/19 09:00 Ordered 1 each PO DAILY Sodium Chloride 0.9% [Saline Flush] Med 08/22/19 11:31 Active 10 ml FLUSH ASDIRECTED PRN Tums 750mg Med 08/23/19 09:00 Ordered 1 tab PO DAILY Umeclidinium [place] [Incruse Ellipta*] Med 08/23/19 09:00 Ordered 1 puff IH DAILY carvediloL [Coreg] Med 08/23/19 18:00 Ordered 25 mg PO BIDMEALS methylPREDNISolone Sod Succ [Solu-MEDROL] Med 08/22/19 12:45 Active 125 mg IVPUSH Q8H Convert IV to Saline Lock [OM.PC] Urgent Oth 08/23/19 08:48 Ordered Peripheral IV Insertion Adult [OM.PC] Routine Oth 08/22/19 11:31 Ordered Resuscitation Status Routine Resus Stat 08/22/19 11:31 Ordered Medication Orders Albuterol/Ipratropium (Duoneb 3.0-0.5 Mg/3 Ml) 3 ml NEB QIDRT [facility] Last Admin: 08/23/19 06:17 Dose: 3 ml Admin: 08/22/19 20:26 Dose: 3 ml Admin: 08/22/19 16:05 Dose: 3 ml Aspirin (Aspirin) 81 mg PO DAILY SY Bumetanide (Bumex) 0.5 mg PO MOWEFR [facility] Carvedilol (Coreg) 25 mg PO BIDMEALS SY Doxepin HCl (Sinequan) 25 mg PO BEDTIME SY Famotidine (Pepcid) 20 mg PO DAILY SY Methylprednisolone Sodium Succinate (Solu-Medrol) 125 mg IVPUSH Q8H [facility] Last Admin: 08/23/19 05:10 Dose: 125 mg Admin: 08/22/19 20:26 Dose: 125 mg Admin: 08/22/19 13:48 Dose: 125 mg Non-Formulary Medication (Cholecalciferol (Vitamin D3) [Vitamin D3]) 2,000 unit PO DAILY SY Non-Formulary Medication (Fluticasone/Salmeterol [Advair 250-50]) 1 puff IH BID SY Non-Formulary Medication (Hydrocortisone [Cortef]) 10 mg PO DAILY SY Non-Formulary Medication (Magnesium [Magnesium]) 250 mg PO DAILY SY Non-Formulary Medication (Multivit-Min/Fa/Lycopen/Lutein [Centrum Silver Tablet] ) 1 each PO DAILY SY Non-Formulary Medication (Tums 750mg) 1 tab PO DAILY SY Non-Formulary Medication (Umeclidinium [place] [Incruse Ellipta*]) 1 puff IH DAILY SY Sodium Chloride (Saline Flush) 10 ml FLUSH ASDIRECTED PRN PRN Reason: Keep Vein Open Last Admin: 08/23/19 05:10 Dose: 10 ml Admin: 08/22/19 20:26 Dose: 10 ml Assessment/Plan Comment:: I will admitted Zac, for COPD and possibly CHF exacerbation. Obtain a echocardiogram today to evaluate his left ventricular function. I will start him on supplemental O2, and when necessary nebulizers of albuterol. After gentle hydration since yesterday's creatinine is improved today. On today's 2 resume his home medications, ambulate, and repeat labs the morning. - Mortality Measure Prognosis:: Good
[2019-08-23] MEDS ORDERED: HYDROCORTISONE 10 MG PO SCH (09:00)
[2019-08-23] MEDS ORDERED: Formoterol/Mometasone 200-5 MCG 8.8 GM Inhaler IH SCH (09:15)
[2019-08-23] MEDS: Multivitamins,Therapeutic Tab PO SCH (10:15)
[2019-08-23] MEDS: Aspirin 81 MG Tab.Chew PO SCH (10:15)
[2019-08-23] MEDS: Magnesium Oxide 400 MG Tab PO SCH (10:15)
[2019-08-23] MEDS: Famotidine 20 MG Tab PO SCH (10:15)
[2019-08-23] MEDS: Cholecalciferol (Vitamin D3) 25 MCG Tab PO SCH (10:15)
[2019-08-23] MEDS: Tiotropium Inhaler 18 MCG Inhalation Powder Cap Kit of 5 INH SCH (10:16)
[2019-08-23] MEDS: Calcium Carbonate 500 MG Tab.Chew PO SCH (10:16)
[2019-08-23] MEDS: Carvedilol 25 MG Tab PO SCH ×2 (10:32→19:25)
[2019-08-23] MEDS: Formoterol/Mometasone 200-5 MCG 8.8 GM Inhaler IH SCH (20:07)
[2019-08-23] MEDS ORDERED: Doxepin 25 MG Cap PO SCH (21:00)
[2019-08-24] MEDS: methylPREDNISolone Sodium Succinate 125 MG/2 ML SDV IVPUSH SCH (04:54)
[2019-08-24] MEDS: Sodium Chloride 0.9% 10 ML Syringe FLUSH PRN (04:54)
[2019-08-24] MEDS: Albuterol/Ipratropium 3.0-0.5 MG/3 ML Neb Soln NEB SCH ×2 (06:14→10:01)
[2019-08-24] MEDS: Aspirin 81 MG Tab.Chew PO SCH (08:06)
[2019-08-24] MEDS: Carvedilol 25 MG Tab PO SCH (08:06)
[2019-08-24] MEDS: Magnesium Oxide 400 MG Tab PO SCH (08:07)
[2019-08-24] MEDS: Formoterol/Mometasone 200-5 MCG 8.8 GM Inhaler IH SCH (08:07)
[2019-08-24] MEDS: Cholecalciferol (Vitamin D3) 25 MCG Tab PO SCH (08:08)
[2019-08-24] MEDS: Famotidine 20 MG Tab PO SCH (08:08)
[2019-08-24] MEDS: Multivitamins,Therapeutic Tab PO SCH (08:08)
[2019-08-24] MEDS: Tiotropium Inhaler 18 MCG Inhalation Powder Cap Kit of 5 INH SCH (08:09)
[2019-08-24] MEDS: Calcium Carbonate 500 MG Tab.Chew PO SCH (08:10)
[2019-08-24 08:11] VITALS: BP 137/62; PULSE 69
[2019-08-24] MEDS ORDERED: Bumetanide 1 MG Tab PO SCH (09:00)
--- NOTE | 2019-08-24 17:05 | DISCH ---
DISCHARGE DATE: 08/24/2019 REASON FOR ADMISSION: 1. Shortness of breath. 2. Fatigue. 3. Acute on chronic renal failure. 4. History of CHF. 5. History of lung cancer. FINAL DIAGNOSES ON DISCHARGE: 1. Chronic obstructive pulmonary disease exacerbation. 2. History of congestive heart failure. 3. History of bilateral lung cancer. 4. Chronic kidney disease. HISTORY AND HOSPITAL COURSE: An 83-year-old male who came in for weakness, increasing shortness of breath. Initial x-ray was negative. Creatinine was 2.7. He had taken an extra dose of Bumex with a presumptive diagnosis of CHF last week. Upon admission, he was given some IV fluids initially, and he was given Solu-Medrol and SVNs. He improved. His strength returned. His creatinine was down to 1.9 and I discharged him today with prednisone 10 mg b.i.d. for 5 days. I would like him to return to see me in a week in the clinic. I spent more than 35 minutes in the discharge of this patient. /[id number] LESLIE/TITO
== END 2019-08-24 10:30 | disposition home or self-care (01) | DRG 292 ==
LOC: FB.MS 10:56
PROVIDERS: ADMIT Family Medicine; ATTEND Family Medicine
DX: I13.0 Hypertensive heart and chronic kidney disease with heart failure and stage 1 through stage 4 chronic kidney disease, or unspecified chronic kidney disease (principal); N17.9 Acute kidney failure, unspecified; I50.32 Chronic diastolic (congestive) heart failure; J43.9 Emphysema, unspecified; N18.1 Chronic kidney disease, stage 1; K21.9 Gastro-esophageal reflux disease without esophagitis; M19.90 Unspecified osteoarthritis, unspecified site; M10.9 Gout, unspecified; Z91.040 Latex allergy status; Z85.118 Personal history of other malignant neoplasm of bronchus and lung; Z87.01 Personal history of pneumonia (recurrent); Z85.828 Personal history of other malignant neoplasm of skin; Z85.46 Personal history of malignant neoplasm of prostate; Z79.82 Long term (current) use of aspirin; Z79.899 Other long term (current) drug therapy; Z98.49 Cataract extraction status, unspecified eye; Z85.72 Personal history of non-Hodgkin lymphomas; Z87.891 Personal history of nicotine dependence
CPT/HCPCS: 36415; 71046; 80048; 83880; 84484; 85025; 93306; 94150; 94640; 94760; 97161-GP; 97165-GO; 97530-GO; 97535-GO; A9270-GY; J2930; J7030; J7620-GY

== ENCOUNTER 2021-08-05 09:52 | Emergency (ER) | payer MEDICARE, OTHER ==
[2021-08-05] MEDS ORDERED: Dexamethasone 4 MG/ML 5 ML MDV IVPUSH ONE (09:53)
[2021-08-05] MEDS ORDERED: Lidocaine 2% 5 ML SDV INJECT ONE (09:53)
[2021-08-05] MEDS ORDERED: Lactated Ringers 1,000 ML IV ONE (09:53)
[2021-08-05] MEDS ORDERED: Propofol 200 MG/20 ML SDV IV ONE (09:53)
[2021-08-05] MEDS ORDERED: Glycopyrrolate 0.2 MG/ML 5 ML MDV IV ONE (09:53)
[2021-08-05 09:58] VITALS: BP 138/68; PULSE 72
[2021-08-05] MEDS ORDERED: Glucagon,Human Recombinant 1 MG Vial IVPUSH ONE (10:15)
[2021-08-05] MEDS ORDERED: Sodium Chloride 0.9% 1,000 ML IV SCH (10:15)
[2021-08-05] MEDS ORDERED: Sodium Chloride 0.9% 10 ML Syringe FLUSH PRN (10:15)
--- NOTE | 2021-08-05 12:12 | EDM.PDOC ---
ED HPI GENERAL MEDICAL PROBLEM - General Chief Complaint: ENT Problem Stated Complaint: difficulty swallowing Time Seen by Provider: 08/05/21 10:00 Source of Information: Reports: Patient History Limitations: Reports: No Limitations - History of Present Illness INITIAL COMMENTS - FREE TEXT/NARRATIVE: Patient is an 85 YO WM who presented to the ED because food and water doesn't go down to his esophagus and regurgitates it back. There is no nausea,vomiting or abdominal pain. He is feeling weak because he wasn't able to eat and drink since yesterday. No other presenting symptoms. - Related Data Allergies Allergy/AdvReac Type Severity Reaction Status Date / Time furosemide [From Lasix] Allergy Cannot Verified 08/22/19 12:20 Remember Home Meds: Home Meds Albuterol [Proventil HFA] 2 puff INH Q4H PRN 12/01/14 [History] Aspirin [Children's Aspirin] 81 mg PO DAILY 12/01/14 [History] Bumetanide [Bumex] 0.5 mg PO MOWEFR 12/01/14 [History] Doxepin [SINEquan] 25 mg PO BEDTIME 12/01/14 [History] Hydrocortisone [Cortef] 10 mg PO DAILY 12/01/14 [History] Fluticasone/Salmeterol [Advair 250-50] 1 puff IH BID 02/23/18 [History] Umeclidinium [place] [Incruse Ellipta*] 1 puff IH DAILY 02/23/18 [History] Famotidine 20 mg PO DAILY 01/25/19 [History] carvediloL [Carvedilol] 25 mg PO BIDMEALS 01/25/19 [History] Cholecalciferol (Vitamin D3) [Vitamin D3] 2,000 unit PO DAILY 01/28/19 [History] Magnesium 250 mg PO DAILY 01/28/19 [History] Multivit-Min/FA/Lycopen/Lutein [Centrum Silver Tablet] 1 each PO DAILY 01/28/19 [History] Tums 750mg 1 tab PO DAILY 01/28/19 [History] predniSONE 20 mg PO BID #10 tab 08/24/19 [Rx] Past Medical History HEENT History: Reports: Cataract, Impaired Vision Cardiovascular History: Reports: Hypertension Respiratory History: Reports: COPD, Pneumonia, Recurrent, SOB Other Respiratory History: hx of lung ca with "tumors removed twice" one from each lung Gastrointestinal History: Reports: GERD Genitourinary History: Reports: Prostate Disorder Musculoskeletal History: Reports: Arthritis, Back Pain, Chronic, Gout, Neck Pain, Chronic 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 - Alcohol Use Days Per Week of Alcohol Use: 7 Number of Drinks Per Day: 1 Total Drinks Per Week: 7 - Recreational Drug Use Recreational Drug Use: No - Living Situation & Occupation Occupation: Retired ED ROS GENERAL - Review of Systems Review Of Systems: See Below Constitutional: Reports: No Symptoms HEENT: Reports: No Symptoms Respiratory: Reports: No Symptoms Cardiovascular: Reports: No Symptoms Endocrine: Reports: No Symptoms GI/Abdominal: Reports: No Symptoms : Reports: No Symptoms Musculoskeletal: Reports: No Symptoms Skin: Reports: No Symptoms ED EXAM, GI/ABD - Physical Exam Exam: See Below Exam Limited By: No Limitations General Appearance: Alert, No Apparent Distress Ears: Normal External Exam, Normal Canal, Hearing Grossly Normal, Normal TMs Nose: Normal Inspection, Normal Mucosa, No Blood Throat/Mouth: Normal Inspection, Normal Lips, Normal Teeth, Normal Gums, Normal Oropharynx, Normal Voice, No Airway Compromise Head: Atraumatic, Normocephalic Neck: Normal Inspection, Supple, Non-Tender, Full Range of Motion Respiratory/Chest: No Respiratory Distress, Lungs Clear, Normal Breath Sounds Cardiovascular: Normal Peripheral Pulses, Regular Rate, Rhythm, No Edema, No Gallop, No JVD, No Murmur, No Rub GI/Abdominal Exam: Normal Bowel Sounds, Soft, Non-Tender, No Organomegaly, No Distention, No Abnormal Bruit, No Mass, Pelvis Stable Back Exam: Normal Inspection, Full Range of Motion Course - Vital Signs Text/Narrative:: Lab/EKG/CXR result was reviewed and discussed with patient NPO NS @ 125 ml/hr Glucagon 1 mg IV x1 His creatinine is elevated at 2.1 and that is his baseline. He has a history of CKD Elevated pro BNP-1455. Patient's baseline. Dr Dodge was consulted and will do an EGD at 1900 Last Recorded V/S: Last Vital Signs Temp 36.1 C 08/05/21 09:58 Pulse 72 08/05/21 09:58 Resp 15 08/05/21 09:58 BP 138/68 08/05/21 09:58 Pulse Ox 95 08/05/21 09:58 - Orders/Labs/Meds Orders: Active Orders 24 hr Category Date Time Status Chest 1V Frontal [CR] Stat Exams 08/05/21 10:15 Taken Saline Lock Insert [OM.PC] Routine Oth 08/05/21 10:15 Ordered EKG 12 Lead [EK] Routine Ther 08/05/21 10:15 Ordered Labs: Laboratory Tests 08/05/21 08/05/21 08/05/21 Range/Units 10:49 10:49 10:55 WBC 6.2 (3.2-10.1) x10-3/uL RBC 4.65 (3.90-5.90) x10(6)uL Hgb 13.9 (12.9-17.7) g/dL Hct 42.5 (38.3-50.1) % MCV 91.4 (80.8-98.7) fL MCH 30.0 (27.0-33.3) pg MCHC 32.8 (28.7-35.3) g/dL RDW 14.1 (12.4-15.0) % Plt Count 164 (117-477) x10(3)uL MPV 8.9 (6.7-11.0) fL Neut % (Auto) 60.5 (40.3-71.8) % Lymph % (Auto) 13.6 L (15.8-45.3) % [place] % (Auto) 9.8 (5.5-15.2) % Eos % (Auto) 15.5 H (0.1-6.8) % Baso % (Auto) 0.6 (0.3-3.8) % Neut # (Auto) 3.7 (1.7-6.9) x10-3/uL Lymph # (Auto) 0.8 (0.5-4.5) x10-3/uL [place] # (Auto) 0.6 (0.0-1.2) x10-3/uL Eos # (Auto) 1.0 H (0.0-0.6) x10-3/uL Baso # (Auto) 0.0 (0.0-0.3) x10-3/uL Sodium 143 (135-145) mmol/L Potassium 4.8 (3.5-5.3) mmol/L Chloride 106 (100-110) mmol/L Carbon Dioxide 29 (21-32) mmol/L BUN 31 H D (7-18) mg/dL Creatinine 2.1 H* (0.70-1.30) mg/dL Est Cr Clr Drug Dosing 25.72 mL/min Estimated GFR (MDRD) 30 L (>60) BUN/Creatinine Ratio 14.8 (9-20) Glucose 92 D (80-116) mg/dL Calcium 9.0 (8.6-10.2) mg/dL Total Bilirubin 0.7 (0.1-1.3) mg/dL AST 16 (5-25) IU/L ALT 17 D (12-36) U/L Alkaline Phosphatase 71 (56-112) IU/L Troponin I 12.0 (4.0-60.3) pg/mL NT-Pro-B Natriuret Pep 1455 H* (<=450) pg/mL Total Protein 7.0 (6.0-8.0) g/dL Albumin 3.4 (3.2-4.6) g/dL Globulin 3.6 g/dL Albumin/Globulin Ratio 0.9 Meds: Medications Discontinued Medications Generic Name Dose Route Start Last Admin Trade Name Freq PRN Reason Stop Dose Admin Glucagon 1 mg 08/05/21 10:15 08/05/21 10:37 Glucagon,Human Recombinant 1 Mg Vial IVPUSH 08/05/21 10:16 1 mg ONETIME ONE Administration Sodium Chloride 1,000 mls @ 125 mls/hr 08/05/21 10:15 08/05/21 10:37 Normal Saline IV 125 mls/hr ASDIRECTED SY Administration Sodium Chloride 10 ml 08/05/21 10:15 08/05/21 10:38 Sodium Chloride 0.9% 10 Ml Syringe FLUSH 10 ml ASDIRECTED PRN Administration Keep Vein Open Departure - Departure Time of Disposition: 12:00 Disposition: Home, Self-Care 01 Condition: Good Clinical Impression: Esophageal obstruction - Discharge Information Instructions: Upper Endoscopy, Adult, Care After, Soft-Food Eating Plan Referrals: Xavier Giron MD [Primary Care Provider] - Forms: ED Department Discharge Additional Instructions: FOLLOW UP WITH DR. GIRON IN 1 MONTH. Sepsis Event Note (ED) - Evaluation Sepsis Screening Result: No Definite Risk - My Orders Last 24 Hours: My Active Orders 08/05/21 10:15 Chest 1V Frontal [CR] Stat Saline Lock Insert [OM.PC] Routine EKG 12 Lead [EK] Routine - Assessment/Plan Last 24 Hours: My Active Orders 08/05/21 10:15 Chest 1V Frontal [CR] Stat Saline Lock Insert [OM.PC] Routine EKG 12 Lead [EK] Routine
--- NOTE | 2021-08-06 07:19 | OR ---
DATE OF OPERATION: 08/05/2021 SURGEON: Sriram Dodge MD PREOPERATIVE DIAGNOSIS: Foreign body in esophagus. POSTOPERATIVE DIAGNOSIS: Foreign body in esophagus. PROCEDURE: Esophagogastroscopy with removal of foreign body. ANESTHESIA: IV sedation. HISTORY: This 85-year-old gentleman presented to the emergency room today with dysphagia and food stuck in his esophagus. He was unable to swallow liquids. I discussed the situation with the patient prior to the procedure and reviewed risks and complications and consent was obtained. DESCRIPTION OF PROCEDURE: Patient was brought to the procedure room where he was placed on his left side and IV sedation administered. Oral bite block was placed and the upper endoscope advanced into the hypopharynx with some thick saliva and old liquid food remaining that was suctioned. The scope was then advanced into the esophagus and food was present with the bolus impacted in the distal esophagus. With gentle pressure, I was able to push this through. This appeared to be old meat. The esophagus does have inflammation with some erosions in the distal esophagus. The scope passed easily through so I did not dilate today. The body and fundus of the stomach were normal. Antrum was normal. Air was removed and the scope was slowly withdrawn through the remaining esophagus, which appeared normal. The patient tolerated the procedure well and returned to the ER in stable condition. I will make sure that he is treated with omeprazole for a month, and if he has any remaining dysphagia symptoms, repeat endoscopy with dilatation would be recommended. /[id number] ADAM/TITO
--- NOTE | 2021-08-06 10:17 | PCM.EKG ---
#1 Interpretation EKG Date: 08/05/21 Time: 10:46 Rhythm: NSR Rate (Beats/Min): 70 [place]: Normal P-Wave: Present QRS: Normal ST-T: Normal QT: Normal MT/PQ Interval: 203 Comparison: No Change EKG Interpretation Comments: NSR PVC's
== END 2021-08-05 19:25 | disposition home or self-care (01) ==
LOC: FB.ED 09:52 → SUPCPDRO 09:52 → FB.ED 19:25
DX: K22.2 Esophageal obstruction (principal); I10 Essential (primary) hypertension; J44.9 Chronic obstructive pulmonary disease, unspecified; K21.9 Gastro-esophageal reflux disease without esophagitis; Z79.82 Long term (current) use of aspirin; Z79.899 Other long term (current) drug therapy
CPT/HCPCS: 36415; 71045; 80053; 83880; 84484; 85025; 93005; J1100; J1610; J2704; J3490; J7030; J7120; 00731-QZ; 96374; 99284-25

== ENCOUNTER 2022-07-10 10:44 | Emergency (ER) | payer MEDICARE, OTHER ==
[2022-07-10] MEDS ORDERED: Sodium Chloride 0.9% 1,000 ML IV SCH ×3 (11:00→15:30)
[2022-07-10 11:47] LABS: ESTIMATED GFR 39 mL/min (>60)
[2022-07-10] MEDS ORDERED: Levofloxacin 500 MG Tab PO ONE (12:03)
[2022-07-10] MEDS ORDERED: cefTRIAXone 1 GM Vial IVPUSH STA (12:44)
[2022-07-10] MEDS ORDERED: Morphine 4 MG/ML VIAL IVPUSH STA (14:25)
[2022-07-10] MEDS ORDERED: HYDROmorphone 2 MG/ML SDV IVPUSH STA (14:46)
[2022-07-10] MEDS ORDERED: Ondansetron 4 MG/2 ML SDV IVPUSH STA (17:07)
[2022-07-10 19:42] VITALS: BP 149/85; PULSE 79
[2022-07-10] MEDS ORDERED: Iopamidol 755 Mg/ML 75 ML Bottle IV ONE (22:27)
== END 2022-07-10 17:20 ==
LOC: FB.ED 10:44 → FB.ZCENSUS 15:01 → UNDOADMIN 15:01 → UNDODISIN 17:20 → FB.ED 17:20
DX: N39.0 Urinary tract infection, site not specified (principal); N18.1 Chronic kidney disease, stage 1; C67.9 Malignant neoplasm of bladder, unspecified; I12.9 Hypertensive chronic kidney disease with stage 1 through stage 4 chronic kidney disease, or unspecified chronic kidney disease; J44.9 Chronic obstructive pulmonary disease, unspecified; M10.9 Gout, unspecified; K21.9 Gastro-esophageal reflux disease without esophagitis; M19.90 Unspecified osteoarthritis, unspecified site; M54.9 Dorsalgia, unspecified; M54.2 Cervicalgia; G89.29 Other chronic pain; H54.7 Unspecified visual loss; Z79.899 Other long term (current) drug therapy; Z79.52 Long term (current) use of systemic steroids; Z87.01 Personal history of pneumonia (recurrent); Z85.828 Personal history of other malignant neoplasm of skin; Z85.118 Personal history of other malignant neoplasm of bronchus and lung; Z85.3 Personal history of malignant neoplasm of breast
CPT/HCPCS: 36415; 74177; 80053; 81001; 82150; 83690; 85025; 87086; 96361; 96374; 96375; 99283; 99285; A9270; J0696; J1170; J2270; J2405; J7030; Q9967